=== PATIENT | female | born 1960 | race Caucasian/White ===

== ENCOUNTER → 2016-10-11 | Outpatient (CLI) | payer OTHER ==
[~2016-10-11] MED LIST: AMOX875T PO; ASCA500 PO; CHOL20009 PO; CHOLCAP5 PO; CYAN100020 PO; HYDR-5688 PO; IMT100 PO; LEVO150T9 PO; LIOT5TAB PO; LIOT5TAB9 PO; NAPR-1169 PO; NAPR500T3 PO; OMEG10002 PO; PANT40TA2 PO; RANITAB33 PO; SUMA100T16 PO; SYN150 PO
== END | disposition home or self-care (01) ==
LOC: C.PATHSPEC 16:36
PROVIDERS: ATTEND Dermatology
DX: L57.0 Actinic keratosis (principal)

== ENCOUNTER → 2016-10-18 | Outpatient (CLI) | payer OTHER ==
--- NOTE | 2016-10-18 12:36 | MAMMOGRAPHY REPORT ---
UNILATERAL RIGHT DIGITAL DIAGNOSTIC MAMMOGRAM TOMOSYNTHESIS WITH CAD AND TARGETED BILATERAL ULTRASOU ND: 10/18/2016 CLINICAL HISTORY: Here for six-month follow-up of bilateral breast masses. The patient also reports intermittent left nipple inversion for the last few months. She denies any bloody nipple discharge , palpable lumps, or other current complaints. TECHNIQUE: Breast tomosynthesis in addition to standard 2D mammography was performed. Current study was also evaluated with a Computer Aided Detection (CAD) system. Right CC and MLO 2-D and tomosynt hesis images were obtained. COMPARISON: Comparison is made to exams dated: 05/08/2016 ultrasound, 05/08/2016 mammogram, 11/02/2015 mammogram, 11/02/2015 ultrasound, 04/26/2015 ultrasound, and 04/26/2015 mammogram - [facility]. BREAST COMPOSITION: The tissue of the right breast is heterogeneously dense, which may obscure smal l masses. FINDINGS: There has been no significant interval change compared to prior exams. Again noted are s mall circumscribed benign-appearing masses noted within the right breast, predominantly the right up per outer quadrant. There are no suspicious masses, calcifications, or areas of architectural disto rtion noted in the right breast. Targeted ultrasound was performed of the area of the previously seen masses in the right upper outer quadrant. Again noted are multiple benign appearing cysts and cyst clusters, including 2 adjacent anechoic benign cysts in the right breast at 11:00 measuring 4 and 4 mm. An 8 x 4 x 7 mm anechoic d escribed mass with thin internal septations is seen within the right breast at 9:00, 9 cm from the n ipple, consistent with a benign cyst cluster. Another cyst cluster is seen within the right breast at 10:00, 7 cm from the nipple, measuring 7 x 8 x 5 mm. An adjacent anechoic benign cyst is seen me asuring 5 mm. Another anechoic benign cyst measuring 4 mm is seen within the right breast at 9:30, 9 cm from the nipple. There is a round circumscribed nearly anechoic cyst in the left breast at 11: 00, 4-5 cm from the nipple, measuring 5 x 5 x 4 mm. Adjacent to this is a cyst which measures 3 x 2 mm. No suspicious solid masses are evident. Targeted ultrasound was performed of the left subareolar breast, which shows no suspicious masses or other suspicious sonographic abnormalities. IMPRESSION: ACR BI-RADS CATEGORY 2: BENIGN, TARGETED ULTRASOUND ACR BI-RADS CATEGORY 2: BENIGN Multiple benign cysts and cyst clusters seen bilaterally. No sonographic abnormalities in the left subareolar region to explain intermittent left nipple inversion. There is no mammographic or target ed sonographic evidence of malignancy. Recommend clinical follow-up for intermittent left nipple in version, and recommend routine bilateral screening mammograms which are due May 2017. The patient has been verbally notified of the results. Approximately 10% of breast cancers are not detected with mammography. A negative mammographic repor t should not delay biopsy if a clinically suggestive mass is present. Katrina Sylvester M.D. ah/:10/18/2016 12:05:11 Sensor Operator: Candace Waddell, [facility] letter sent: Normal 1/2 BI-RADS Code: ACR BI-RADS Category 2: Benign Ultrasound BI-RADS: ACR BI-RADS Category 2: Benign
== END | disposition home or self-care (01) ==
LOC: C.MAMM 09:56
PROVIDERS: ATTEND Family Medicine
DX: Z09 Encounter for follow-up examination after completed treatment for conditions other than malignant neoplasm (principal); N63 Unspecified lump in breast; N64.59 Other signs and symptoms in breast; N60.01 Solitary cyst of right breast; N60.02 Solitary cyst of left breast

== ENCOUNTER → 2016-10-30 | Outpatient (CLI) | payer OTHER ==
[2016-10-30 09:59] LABS: CALCIUM 9.4 mg/dl (8.5-10.1)
[2016-10-30 10:00] LABS: ALT/SGPT 72 U/L (12-78); BLOOD UREA NITROGEN 17 mg/dl (7-18); BUN/CREATININE RATIO 21.8 (10-20); CARBON DIOXIDE 27 mmol/L (21-32); CHLORIDE 106 mmol/L (98-107); CHOLESTEROL 237 mg/dl (0-200); CREATININE 0.79 mg/dl (0.60-1.20); GLUCOSE 104 mg/dl (70-99); POTASSIUM 4.1 mmol/L (3.5-5.1); SODIUM 141 mmol/L (136-145); TRIGLYCERIDES 155 mg/dl (0-150); VERY LOW DENSITY LIPOPROT CALC 31 mg/dl
[2016-10-30 10:10] LABS: ALB/GLOB RATIO 1.2 (0.9-2); ALKALINE PHOSPHATASE 56 U/L (45-117); AST/SGOT 32 U/L (15-37); CHOLESTEROL/HDL RATIO 3.8; HDL CHOLESTEROL 63 mg/dl; LDL CHOLESTEROL CALCULATED 143 mg/dl; THYROID STIMULATING HORMONE 0.988 uIu/ml (0.300-4.500)
== END | disposition home or self-care (01) ==
LOC: C.LAB 07:15
PROVIDERS: ATTEND Family Medicine
DX: E03.9 Hypothyroidism, unspecified (principal); E78.5 Hyperlipidemia, unspecified; Z11.59 Encounter for screening for other viral diseases

== ENCOUNTER → 2016-12-20 | Outpatient (CLI) | payer OTHER | END | disposition home or self-care (01) | LOC: C.PATHSPEC 13:18 | PROVIDERS: ATTEND Dermatology | DX: L91.8 Other hypertrophic disorders of the skin (principal) ==

== ENCOUNTER → 2016-12-31 | Outpatient (CLI) | payer OTHER ==
[~2016-12-31] MED LIST changes: -PANT40TA2 PO; +PRT/40 PO
== END | disposition home or self-care (01) ==
LOC: C.PATHSPEC 16:53
PROVIDERS: ATTEND Dermatology
DX: L91.8 Other hypertrophic disorders of the skin (principal)

== ENCOUNTER 2017-01-01 17:14 | Emergency (ER) | payer OTHER ==
[~2017-01-01] VITALS: Ht 160 cm; Wt 109.1 kg
[~2017-01-01 17:14] MED LIST changes: -AMOX875T PO; -CHOLCAP5 PO; -CYAN100020 PO; -HYDR-5688 PO; -IMT100 PO; -LIOT5TAB9 PO; -NAPR500T3 PO; -PRT/40 PO; -SYN150 PO
[2017-01-01 17:21] VITALS: TEMP 36.7; Ht 160 cm; Wt 109.1 kg
[2017-01-01] MEDS ORDERED: SODIUM CHLORIDE 0.9% 1000ML 1,000 ML IV STA (17:37)
[2017-01-01] MEDS ORDERED: NAPR500T3 PO (18:03)
[2017-01-01] MEDS ORDERED: IMT100 PO (18:03)
[2017-01-01] MEDS ORDERED: LIOT5TAB9 PO (18:03)
[2017-01-01] MEDS ORDERED: SYN150 PO (18:03)
[2017-01-01] MEDS ORDERED: PRT/40 PO (18:03)
[2017-01-01] MEDS ORDERED: CHOLCAP5 PO (18:05)
[2017-01-01] MEDS ORDERED: CYAN100020 PO (18:05)
[2017-01-01 18:16] LABS: BASO % 0.5 %; BASO ABS # 0.04 K/uL (0-0.2); COMPLETE YES; EOS % 2.7 %; HEMATOCRIT 41.9 % (37-47); IG% 0.1 %; LYMPH % 26.8 %; LYMPH ABS # 2.18 K/uL (1.2-3.4); MEAN CELL VOLUME 89.5 fL (80-100); MEAN CORPUSCULAR HEMOGLOBIN 30.1 pg (25-34); MEAN CORPUSCULAR HGB CONC 33.7 g/dl (32-36); MEAN PLATELET VOLUME 10.3 fL (7.4-10.4); MONO % 8.6 %; NEUT % 61.3 %; PLATELET COUNT 235 K/uL (130-400); RED BLOOD COUNT 4.68 M/uL (4.2-5.4); WHITE BLOOD COUNT 8.14 K/uL (4.8-10.8)
[2017-01-01] MEDS ORDERED: MoRPHine SULFATE 10 MG/ML CARP/VIAL IV STA (18:20)
[2017-01-01] MEDS ORDERED: MoRPHine SULFATE 2 MG/ML CARP ONE (18:22)
[2017-01-01] MEDS ORDERED: MoRPHine SULFATE 4 MG/ML 1 ML CARP\\VIAL ONE (18:22)
[2017-01-01 18:23] LABS: URINE APPEARANCE CLEAR (CLEAR); URINE BILIRUBIN NEG (NEG); URINE COLOR YELLOW; URINE NITRITE NEG (NEG); URINE PH 5.5 (4.5-7.5); UROBILINOGEN NEG (NEG); ZZUR CULT IF INDIC CLEAN CATCH NO
[2017-01-01 18:26] LABS: MANUAL MICROSCOPIC REQUIRED? NO; REVIEW REQ? NO
[2017-01-01 18:42] LABS: ALB/GLOB RATIO 1.1 (0.9-2); CREATININE 0.86 mg/dl (0.60-1.20); POTASSIUM 3.9 mmol/L (3.5-5.1)
[2017-01-01] MEDS ORDERED: OPTIRAY 320 IV PRN (20:00)
--- NOTE | 2017-01-01 20:17 | DIAGNOSTIC IMAGING REPORT ---
ABDOMEN AND PELVIS CT WITH IV AND ORAL CONTRAST CT DOSE: 1443.11 mGy.cm HISTORY: left lower quadrant pain, hx diverticulosis TECHNIQUE: Multiaxial CT images of the abdomen and pelvis were performed following the use of intravenous and oral contrast. COMPARISON STUDY: Abdomen and pelvis CT 03/24/2016. FINDINGS: The lung bases are clear. Cholecystectomy. Stable hypodense lesions within the liver which likely represent cysts. Hepatic steatosis. The spleen, adrenal glands, and pancreas are unremarkable. No hydronephrosis. Stable 6 mm hypodense lesion within the left kidney. This is too small to characterize. No retroperitoneal lymphadenopathy. The bladder, uterus, and adnexa are unremarkable. Colonic diverticulosis. No evidence for bowel obstruction. Normal appendix. Anterior to and abutting the proximal sigmoid colon within the left lower quadrant there is a bilobed fat-containing structure which measures 3.2 x 2.0 cm in size. There is mild surrounding fat stranding. No definite bowel wall thickening. Therefore, these findings likely represent an epiploic appendagitis. IMPRESSION: Anterior to and abutting the proximal sigmoid colon within the left lower quadrant there is a bilobed fat-containing structure which measures 3.2 x 2.0 cm in size. There is mild surrounding fat stranding. No definite bowel wall thickening. Therefore, these findings are consistent with an epiploic appendagitis. An acute diverticulitis is considered less likely given the lack of an inflamed diverticulum or bowel wall thickening. However, consider repeat scanning if the patient symptoms continue to progress. Electronically signed by: Everett Ferreira M.D. 01/01/2017 8:15 PM Dictated Date/Time: 01/01/2017 8:09 PM
[2017-01-01] MEDS ORDERED: AMOX875T PO (21:08)
[2017-01-01] MEDS ORDERED: HYDR-5688 PO (21:08)
--- NOTE | 2017-01-01 21:10 | EMERGENCY ROOM VISIT NOTE ---
History First contact with patient: 17:25 Chief Complaint: FLANK PAIN Stated Complaint: LEFT UPPER ABDOMINAL PAIN, LOWER STOMACH History of Present Illness The patient is a 56 year old female who presents to the Emergency Room with complaints of left-sided abdominal pain. The patient states that she has a history of left upper and epigastric abdominal pain for the past 2 years. She has been seen by GI for this. She states that over the past 2 days, she has had worsening pain and pain in the left lower abdomen, which is new for her. The pain radiates into the back. She states she has increased pain with bearing down for bowel movements. She rates her discomfort an 8/10. She called Dr. flower's office but states that no one was available to see her, so they sent her here. She states that she was up all night due to the pain. She took an aspirin without relief. She has previously had a cholecystectomy and a removal of the right ovary secondary to a cyst. She has had a colonoscopy in the past and has been told that she has diverticulosis. She takes pantoprazole for her chronic abdominal pain. She denies any chest pain, shortness of breath , vomiting or changes in bowel movements. She denies any urinary symptoms. Review of Systems A complete 10 point review of systems was reviewed with the patient with pertinent positives and negatives as per history of present illness. All else were negative. Past Medical/Surgical History Medical Problems: (1) Gastroesophageal reflux disease (2) Renny's thyroiditis (3) Hypothyroidism (4) Liver cyst (5) Sarcoidosis Surgical Problems: (1) Hx of cholecystectomy (2) S/P removal of right ovary Social History Smoking Status: Never Smoker Current/Historical Medications Scheduled Amoxicillin & Pot Clavulanate (Augmentin 875-125 mg), 1 TAB PO BID Cholecalciferol (Vitamin D3), 5,000 INTER.UNIT PO DAILY Cyanocobalamin (Vitamin B12), 1,000 MCG PO DAILY Levothyroxine Sodium (Synthroid), 150 MG PO QAM Liothyronine Sodium (Liothyronine Sodium), 10 MCG PO QAM Pantoprazole (Pantoprazole Sodium), 40 MG PO QAM Scheduled PRN Hydrocodone/Acetaminophen 5MG/325MG (Wayne 5MG/325MG), 1-2 TABLET PO Q4H PRN for Pain Naproxen (Naproxen), 500 MG PO Q12 PRN for Migraine Sumatriptan Succinate (Imitrex), 100 MG PO UD PRN for Migraine Allergies Coded Allergies: Omeprazole (Verified Adverse Reaction, Unknown, NAUSEA, 04/08/16) Physical Exam Vital Signs Date Time Temp Pulse Resp B/P (MAP) Pulse Ox O2 Delivery O2 Flow Rate FiO2 01/01/17 21:21 76 20 141/81 97 01/01/17 20:31 81 18 149/87 98 Room Air 01/01/17 18:25 103 17 126/81 97 Room Air 01/01/17 18:14 76 01/01/17 17:21 36.7 87 22 151/79 96 Room Air Physical Exam VITALS: Vitals are noted on the nurse's note and reviewed by myself. Vital signs stable. GENERAL: This is a 56-year-old female, in no acute distress, nondiaphoretic, well-developed well-nourished. HEART: Regular rate and rhythm without murmurs gallops or rubs. LUNGS: Clear to auscultation bilaterally without wheezes, rales or rhonchi. ABDOMEN: Positive bowel sounds x 4. Soft, nondistended. Tenderness over the left upper quadrant and left lower quadrant. No guarding or rebound tenderness. NEURO: Patient was alert and oriented to person place and time. Medical Decision & Procedures ER Provider Diagnostic Interpretation: ABDOMEN AND PELVIS CT WITH IV AND ORAL CONTRAST FINDINGS: The lung bases are clear. Cholecystectomy. Stable hypodense lesions within the liver which likely represent cysts. Hepatic steatosis. The spleen, adrenal glands, and pancreas are unremarkable. No hydronephrosis. Stable 6 mm hypodense lesion within the left kidney. This is too small to characterize. No retroperitoneal lymphadenopathy. The bladder, uterus, and adnexa are unremarkable. Colonic diverticulosis. No evidence for bowel obstruction. Normal appendix. Anterior to and abutting the proximal sigmoid colon within the left lower quadrant there is a bilobed fat-containing structure which measures 3.2 x 2.0 cm in size. There is mild surrounding fat stranding. No definite bowel wall thickening. Therefore, these findings likely represent an epiploic appendagitis. IMPRESSION: Anterior to and abutting the proximal sigmoid colon within the left lower quadrant there is a bilobed fat-containing structure which measures 3.2 x 2.0 cm in size. There is mild surrounding fat stranding. No definite bowel wall thickening. Therefore, these findings are consistent with an epiploic appendagitis. An acute diverticulitis is considered less likely given the lack of an inflamed diverticulum or bowel wall thickening. However, consider repeat scanning if the patient symptoms continue to progress. Laboratory Results 01/01/17 18:00 Red Blood Count 4.68, Mean Corpuscular Volume 89.5, Mean Corpuscular Hemoglobin 30.1, Mean Corpuscular Hemoglobin Concent 33.7, Mean Platelet Volume 10.3, Neutrophils (%) (Auto) 61.3, Lymphocytes (%) (Auto) 26.8, Monocytes (%) (Auto) 8.6, Eosinophils (%) (Auto) 2.7, Basophils (%) (Auto) 0.5, Neutrophils # (Auto) 4.99, Lymphocytes # (Auto) 2.18, Monocytes # (Auto) 0.70, Eosinophils # (Auto) 0.22, Basophils # (Auto) 0.04 01/01/17 18:00 Test 01/01/17 17:45 01/01/17 18:00 Urine Color YELLOW Urine Appearance CLEAR (CLEAR) Urine pH 5.5 (4.5-7.5) Urine Specific [place] 1.010 (1.000-1.030) Urine Protein NEG (NEG) Urine Glucose (UA) NEG (NEG) Urine Ketones NEG (NEG) Urine Occult Blood NEG (NEG) Urine Nitrite NEG (NEG) Urine Bilirubin NEG (NEG) Urine Urobilinogen NEG (NEG) Urine Leukocyte Esterase NEG (NEG) Urine Test NEG (NEG) White Blood Count 8.14 K/uL (4.8-10.8) Red Blood Count 4.68 M/uL (4.2-5.4) Hemoglobin 14.1 g/dL (12.0-16.0) Hematocrit 41.9 % (37-47) Mean Corpuscular Volume 89.5 fL (80-100) Mean Corpuscular Hemoglobin 30.1 pg (25-34) Mean Corpuscular Hemoglobin Concent 33.7 g/dl (32-36) Platelet Count 235 K/uL (130-400) Mean Platelet Volume 10.3 fL (7.4-10.4) Neutrophils (%) (Auto) 61.3 % Lymphocytes (%) (Auto) 26.8 % Monocytes (%) (Auto) 8.6 % Eosinophils (%) (Auto) 2.7 % Basophils (%) (Auto) 0.5 % Neutrophils # (Auto) 4.99 K/uL (1.4-6.5) Lymphocytes # (Auto) 2.18 K/uL (1.2-3.4) Monocytes # (Auto) 0.70 K/uL (0.11-0.59) Eosinophils # (Auto) 0.22 K/uL (0-0.5) Basophils # (Auto) 0.04 K/uL (0-0.2) RDW Standard Deviation 39.8 fL (36.4-46.3) RDW Coefficient of Variation 12.4 % (11.5-14.5) Immature Granulocyte % (Auto) 0.1 % Immature Granulocyte # (Auto) 0.01 K/uL (0.00-0.02) Anion Gap 7.0 mmol/L (3-11) Est Creatinine Clear Calc Drug Dose 88.6 ml/min Estimated GFR () 88.8 Estimated GFR (Non- 76.6 BUN/Creatinine Ratio 17.0 (10-20) Calcium Level 10.0 mg/dl (8.5-10.1) Total Bilirubin 0.3 mg/dl (0.2-1) Aspartate Amino Transf (AST/SGOT) 31 U/L (15-37) Alanine Aminotransferase (ALT/SGPT) 72 U/L (12-78) Alkaline Phosphatase 61 U/L (45-117) Total Protein 7.6 gm/dl (6.4-8.2) Albumin 3.9 gm/dl (3.4-5.0) Globulin 3.7 gm/dl (2.5-4.0) Albumin/Globulin Ratio 1.1 (0.9-2) Lipase 178 U/L (73-393) Medications Administered Medications (Trade) Dose Ordered Sig/Mary Lou Route Start Time Stop Time Status Last Admin Dose Admin Sodium Chloride 1,000 ml @ 999 mls/hr Q1H1M STAT IV 01/01/17 17:37 01/01/17 18:37 DC 01/01/17 18:07 999 MLS/HR Morphine Sulfate (MoRPHine SULFATE INJ) 2 mg STK-MED ONCE .ROUTE 01/01/17 18:22 01/01/17 18:23 DC 01/01/17 18:24 2 MG Morphine Sulfate (MoRPHine SULFATE INJ) 4 mg STK-MED ONCE .ROUTE 01/01/17 18:22 01/01/17 18:23 DC 01/01/17 18:25 4 MG Amoxicillin/ Clavulanate Potassium (Augmentin 875MG Home Pack) 1 homepack UD ONCE PO 01/01/17 21:15 01/01/17 21:16 DC 01/01/17 21:17 1 HOMEPACK Acetaminophen/ Hydrocodone Bitart (Wayne 5/325mg Home Pack) 1 homepack UD ONCE PO 01/01/17 21:15 01/01/17 21:16 DC 01/01/17 21:17 1 HOMEPACK ED Course The patient was evaluated as above. Labs were drawn and IV access was obtained. Patient was medicated with 1 L normal saline solution and [address] of the abdomen and pelvis was performed and read by radiology as above. Patient was reevaluated and findings were discussed. Her pain has improved with the morphine. Discharge instructions were reviewed with the patient. The patient verbalized understanding of my assessment and treatment plan and was discharged home in good condition. Medical Decision Differential diagnosis includes diverticulitis, pancreatitis, hepatitis, gastritis, colitis, bowel obstruction, among others. The patient is a 56-year-old female who presents today complaining of left- sided abdominal pain. The patient does have issues with chronic back pain but states that today's pain is different. She does have some tenderness in the left lower quadrant. For this reason, CT scan was ordered. This did show evidence of epiploic appendagitis. The radiologist report a possibility of diverticulitis. For this reason, I do feel it is best to place the patient on antibiotics pending her follow-up with gastroenterology. She will be placed on Augmentin. Labs were unremarkable, with no leukocytosis, anemia or concerning electrolyte abnormalities. Kidney and liver functions were within normal limits. Urinalysis was not suggestive of infection. The patient was given a short course of pain medication and will follow up with gastrology as needed. The patient's case was reviewed with Dr. Hanna, ED attending physician, who agreed with my assessment and treatment plan. Based on the patient's presentation and work up, I feel the patient is stable for outpatient treatment. The patient was educated to return to the emergency department for any worsening of their current condition or new/concerning symptoms. She will follow up with gastroenterology and her PCP. Medication reconciliation: I attest that I have personally reviewed the patient 's current medication list. Blood Pressure Screening: Patient was found to have a slightly elevated blood pressure due to circumstances. I do not believe that the patient requires hypertension monitoring. [place] Drug Monitoring Program Search Results: patient reviewed within database, no issues identified Impression Primary Impression: Epiploic appendagitis Departure Information Dispostion Home / Self-Care Condition GOOD Prescriptions Hydrocodone/Acetaminophen 5MG/325MG (Wayne 5MG/325MG) Tab 1-2 TABLET PO Q4H Y for Pain, #15 TAB For Initial Treatment Prov: Val Dick PA-C 01/01/17 Amoxicillin & Pot Clavulanate (Augmentin 875-125 mg) 1 Tab Tab 1 TAB PO BID for 9 Days, #18 TAB Prov: Val Dick PA-C 01/01/17 Referrals Arlette Troncoso DO (PCP) Patient Instructions My [facility] Additional Instructions You have been treated in the Emergency Department for your Abdominal Pain. Laboratory results and imaging studies have ruled out any emergent causes for your abdominal pain which would warrant admission or surgery. CT scan showed findings most likely consistent with epiploic appendagitis. There is a possibility that you could have mild diverticulitis, which is why you are being placed on antibiotics. You have been prescribed Wayne to be used for pain control. This is a narcotic medication. You cannot drive or consume alcohol while on this medicine. This medicine should only be used for pain that cannot be controlled with over-the- counter pain medicines. For pain control, you can use the following [id number]-[id number] medicines (if >12 yo): - Regular strength (325mg/tab) Tylenol (acetaminophen) 2 tabs every 4-6 hours as needed. Do not exceed 12 tablets in a 24 hour period. Avoid taking more than 4 grams (4000 mg) of Tylenol per day. This includes any other sources of acetaminophen you may take on a regular basis. - Regular strength (200 mg/tab) Advil (ibuprofen) 1-2 tabs every 4-6 hours as needed. Do not exceed a dose of 3200 mg per day. Drink plenty of water and stay well hydrated. As with any trip to the Emergency Department, you should follow-up with your Primary Care Provider from today's visit. You should also call Dr. Flower's office to schedule a follow-up appointment with him. Return to the emergency department if your symptoms persist despite treatment plan outlined above or if the following symptoms occur: Fever, vomiting, worsening pain or any other new/concerning symptoms.
[2017-01-01] MEDS ORDERED: AMOXICIL/CLAVU 875MG HOME PACK PO ONE (21:15)
[2017-01-01] MEDS ORDERED: NORCO 5/325MG HOME PACK PO ONE (21:15)
[2017-01-01 21:21] VITALS: BP 141/81; PULSE 76; O2SAT 97
== END 2017-01-01 21:22 | disposition home or self-care (01) ==
LOC: C.EDB 17:15 → C.EDA 21:22
DX: K63.89 Other specified diseases of intestine (principal); K21.9 Gastro-esophageal reflux disease without esophagitis; E03.9 Hypothyroidism, unspecified; E06.3 Autoimmune thyroiditis; K76.89 Other specified diseases of liver; Z90.49 Acquired absence of other specified parts of digestive tract; Z98.890 Other specified postprocedural states; Z79.899 Other long term (current) drug therapy; Z88.8 Allergy status to other drugs, medicaments and biological substances

== ENCOUNTER → 2017-01-28 | Outpatient (CLI) | payer BC ==
[~2017-01-28] MED LIST changes: -ASCA500 PO; -CHOL20009 PO; +CHOLCAP5 PO; +CYAN100020 PO; +HYDR-5688 PO; +IMT100 PO; -LEVO150T9 PO; -LIOT5TAB PO; +LIOT5TAB9 PO; -NAPR-1169 PO; +NAPR500T3 PO; -OMEG10002 PO; +OPTIRAY 320 IV PRN; +PRT/40 PO; -RANITAB33 PO; -SUMA100T16 PO; +SYN150 PO
--- NOTE | 2017-01-28 10:09 | DIAGNOSTIC IMAGING REPORT ---
ABD/PELVIS IV AND ORAL CONT CT DOSE: 1418.95 mGy.cm HISTORY: Pain. R10.12 Abdominal pain, LUQ (left upper quadrant)R93.5 Abnormal C TECHNIQUE: Multiaxial CT images of the abdomen and pelvis were performed following the use of intravenous and oral contrast. A dose lowering technique was utilized adhering to the principles of ALARA. COMPARISON STUDY: 01/01/2017 FINDINGS: Lung bases remain clear. Fatty infiltration of liver is stable. Hypodensities suggesting small hemangiomas versus cysts are unchanged. Prior cholecystectomy. Pancreas is uniform. Spleen is unremarkable. Kidneys enhance uniformly. The adrenal glands are normal. Bowel pattern is nonobstructive. There is a described fat density anterior to the sigmoid colon has diminished considerably in terms of size currently evident maximum of 1 cm. Scattered colonic diverticuli with no evidence of diverticulitis. Bladder is midline. The uterus is anteflexed. IMPRESSION: Improved exam with the fat density anterior to the sigmoid on the prior study showing near complete resolution. Scattered colonic diverticulosis. Stable fatty infiltration of liver The above report was generated using voice recognition software. It may contain grammatical, syntax or spelling errors. Electronically signed by: Raymond Flores M.D. 01/28/2017 10:08 AM Dictated Date/Time: 01/28/2017 10:02 AM
== END | disposition home or self-care (01) ==
LOC: C.CTS 09:13
PROVIDERS: ATTEND Registered Nurse
DX: R19.7 Diarrhea, unspecified (principal); R10.12 Left upper quadrant pain; R93.5 Abnormal findings on diagnostic imaging of other abdominal regions, including retroperitoneum; K76.0 Fatty (change of) liver, not elsewhere classified; K57.90 Diverticulosis of intestine, part unspecified, without perforation or abscess without bleeding

== ENCOUNTER → 2017-04-08 | Outpatient (CLI) | payer BC ==
[~2017-04-08] MED LIST changes: -OPTIRAY 320 IV PRN
--- NOTE | 2017-04-08 17:14 | DIAGNOSTIC IMAGING REPORT ---
LEFT FOOT 3 VIEWS CLINICAL HISTORY: Left foot pain of several months duration. FINDINGS: 3 views of the left foot are obtained. No prior studies are available for comparison at the time of dictation. The skeletal structures are well mineralized for age. No fracture is seen. Minimal arthritic change is seen at the first metatarsophalangeal joint. The joint spaces are otherwise preserved. There is a large plantar calcaneal enthesophyte. The overlying soft tissues are within normal limits. IMPRESSION: No acute bony abnormality is seen in the left foot. Electronically signed by: Jamarcus Lezama M.D. 04/08/2017 5:13 PM Dictated Date/Time: 04/08/2017 5:12 PM
--- NOTE | 2017-04-08 17:24 | DIAGNOSTIC IMAGING REPORT ---
RIGHT FOOT 3 VIEWS CLINICAL HISTORY: Right foot pain of several months duration. FINDINGS: 3 views of the right foot are obtained. No prior studies are available for comparison at the time of dictation. The skeletal structures are well mineralized for age. No fracture is seen. Mild arthritic change is seen at the first metatarsophalangeal joint. The joint spaces are otherwise preserved. There is a tiny plantar calcaneal enthesophyte. The overlying soft tissues are within normal limits. IMPRESSION: No acute bony abnormality is seen in the right foot. Electronically signed by: Jamarcus Lezama M.D. 04/08/2017 5:23 PM Dictated Date/Time: 04/08/2017 5:13 PM
== END | disposition home or self-care (01) ==
LOC: C.RAD 16:34
PROVIDERS: ATTEND Neuromusculoskeletal Medicine & OMM
DX: M79.671 Pain in right foot (principal); M79.672 Pain in left foot

== ENCOUNTER → 2017-05-27 | Outpatient (CLI) | payer BC ==
[~2017-05-27] MED LIST changes: +PANT40TA2 PO; -PRT/40 PO
--- NOTE | 2017-05-27 14:33 | MAMMOGRAPHY REPORT ---
BILATERAL DIGITAL SCREENING MAMMOGRAM TOMOSYNTHESIS WITH CAD: 05/27/2017 CLINICAL HISTORY: Routine screening. The patient reports intermittent left breast tenderness and lef t nipple inversion. TECHNIQUE: Breast tomosynthesis in addition to standard 2D mammography was performed. Current study was also evaluated with a Computer Aided Detection (CAD) system. COMPARISON: Comparison is made to exams dated: 10/18/2016 ultrasound, 10/18/2016 mammogram, 05/08/2016 ultrasound, 05/08/2016 mammogram, 11/02/2015 mammogram, and 11/02/2015 ultrasound - [facility]. BREAST COMPOSITION: The tissue of both breasts is heterogeneously dense, which may obscure small mas ses. FINDINGS: No suspicious masses, calcifications, or areas of architectural distortion are noted in ei ther breast. There has been no significant interval change compared to prior exams. Scattered small round/oval benign-appearing masses are again noted bilaterally, with multiple cysts seen on prior ult rasound exams. Scattered bilateral benign-appearing calcifications are also not significantly change d. IMPRESSION: ACR BI-RADS CATEGORY 2: BENIGN There is no mammographic evidence of malignancy. A 1 year screening mammogram is recommended. Also r ecommend clinical follow-up for intermittent left breast tenderness and left nipple inversion. The p atient will receive written notification of the results. Approximately 10% of breast cancers are not detected with mammography. A negative mammographic report should not delay biopsy if a clinically suggestive mass is present. Katrina Sylvester M.D. /:05/27/2017 13:31:50 Frozen Pie Maker: Candace Waddell, [facility] letter sent: Normal 1/2 BI-RADS Code: ACR BI-RADS Category 2: Benign
== END | disposition home or self-care (01) ==
LOC: C.MAMM 10:28
PROVIDERS: ATTEND Obstetrics & Gynecology
DX: Z12.31 Encounter for screening mammogram for malignant neoplasm of breast (principal); N64.4 Mastodynia; N64.59 Other signs and symptoms in breast

== ENCOUNTER → 2017-07-02 | Outpatient (CLI) | payer BC ==
[~2017-07-02] MED LIST changes: +DOCU-94 PO; +NAPR-1231 PO; -NAPR500T3 PO; +ONDA4TAB10 SL; +RANI150T85 PO
== END | disposition home or self-care (01) ==
LOC: C.PATHSPEC 14:02
PROVIDERS: ATTEND Obstetrics & Gynecology
DX: R93.8 Abnormal findings on diagnostic imaging of other specified body structures (principal)

== ENCOUNTER → 2017-07-02 | Outpatient (CLI) | payer BC | END | disposition home or self-care (01) | LOC: C.LABSPEC 13:22 | PROVIDERS: ATTEND Obstetrics & Gynecology | DX: R35.0 Frequency of micturition (principal) ==

== ENCOUNTER → 2017-09-11 | Outpatient (CLI) | payer BC ==
[~2017-09-11] MED LIST changes: -DOCU-94 PO; -HYDR-5688 PO; -ONDA4TAB10 SL; -RANI150T85 PO
--- NOTE | 2017-09-11 17:59 | DIAGNOSTIC IMAGING REPORT ---
KUB HISTORY: Acute left upper quadrant abdominal pain with constipation R14.0 [id number] Abdominal pain, LUQ (left upper quadrant)RA COMPARISON: CT abdomen and pelvis 01/28/2017 FINDINGS: The bowel gas pattern is non-obstructive. Moderate stool volume of the cecum and ascending colon. There is no organomegaly. No renal or ureteral calculi identified. Renal shadows are partially obscured by bowel gas. Cholecystectomy clips noted. Probable phleboliths of the pelvis. Mild dextroscoliosis of the mid lumbar spine. No pneumoperitoneum or pneumatosis. No fracture. IMPRESSION: 1. Nonobstructive bowel gas pattern. 2. No renal or ureteral stones. Electronically signed by: Timothy Goncalves M.D. 09/11/2017 5:57 PM Dictated Date/Time: 09/11/2017 5:56 PM
== END | disposition home or self-care (01) ==
LOC: C.RAD 17:12
PROVIDERS: ATTEND Registered Nurse
DX: R14.0 Abdominal distension (gaseous) (principal); R10.12 Left upper quadrant pain

== ENCOUNTER → 2017-10-07 | Outpatient (CLI) | payer OTHER, BC | END | disposition home or self-care (01) | LOC: C.CPL 08:08 | PROVIDERS: ATTEND Orthopaedic Surgery | DX: M25.562 Pain in left knee (principal) ==

== ENCOUNTER → 2017-10-27 | Outpatient (CLI) | payer BC ==
--- NOTE | 2017-10-27 09:43 | DIAGNOSTIC IMAGING REPORT ---
THYROID ULTRASOUND CLINICAL HISTORY: Throat pain. Dysphagia. COMPARISON STUDY: Thyroid ultrasound June 20, 2014. TECHNIQUE: Sonography of the thyroid gland was performed. FINDINGS: As before, the thyroid gland is markedly heterogeneous. The right lobe measures 5.7 x 2.3 x 2.1 cm and the left lobe measures 5.7 x 2.8 x 2.2 cm. The gland has mildly decreased in size since exam of June 20, 2014. No discrete thyroid nodules are identified. The isthmus measures 0.4 cm in thickness. IMPRESSION: 1. Heterogeneous, enlarged thyroid gland which has slightly decreased in size since exam of June 20, 2014. 2. No discrete thyroid nodules identified. Electronically signed by: Felipe Mclean M.D. 10/27/2017 9:41 AM Dictated Date/Time: 10/27/2017 9:40 AM
== END | disposition home or self-care (01) ==
LOC: C.ULTR 09:05
PROVIDERS: ATTEND Neuromusculoskeletal Medicine & OMM
DX: E04.9 Nontoxic goiter, unspecified (principal)

== ENCOUNTER → 2017-11-26 | Outpatient (CLI) | payer BC ==
[2017-11-26 15:27] LABS: BASO % 0.3 %; BASO ABS # 0.02 K/uL (0-0.2); EOS % 2.7 %; EOS ABS # 0.17 K/uL (0-0.5); HEMATOCRIT 42.6 % (37-47); HEMOGLOBIN 14.3 g/dL (12.0-16.0); IG# 0.01 K/uL (0.00-0.02); LYMPH % 29.5 %; LYMPH ABS # 1.87 K/uL (1.2-3.4); MEAN CELL VOLUME 90.3 fL (80-100); MEAN CORPUSCULAR HEMOGLOBIN 30.3 pg (25-34); MEAN CORPUSCULAR HGB CONC 33.6 g/dl (32-36); MEAN PLATELET VOLUME 10.7 fL (7.4-10.4); MONO % 7.1 %; MONO ABS # 0.45 K/uL (0.11-0.59); NEUT % 60.2 %; NEUT ABS # 3.82 K/uL (1.4-6.5); PLATELET COUNT 225 K/uL (130-400); RED CELL DISTRIBUTION WIDTH CV 12.6 % (11.5-14.5); RED CELL DISTRIBUTION WIDTH SD 41.6 fL (36.4-46.3); WHITE BLOOD COUNT 6.34 K/uL (4.8-10.8)
[2017-11-26 15:54] LABS: ALBUMIN 3.8 gm/dl (3.4-5.0); ALKALINE PHOSPHATASE 68 U/L (45-117); ALT/SGPT 45 U/L (12-78); AST/SGOT 24 U/L (15-37); BLOOD UREA NITROGEN 12 mg/dl (7-18); CALCIUM 9.3 mg/dl (8.5-10.1); CARBON DIOXIDE 29 mmol/L (21-32); CREATININE 0.71 mg/dl (0.60-1.20); GLUCOSE 101 mg/dl (70-99); LIPASE 169 U/L (73-393); POTASSIUM 3.9 mmol/L (3.5-5.1); SODIUM 139 mmol/L (136-145); TOTAL PROTEIN 7.6 gm/dl (6.4-8.2)
== END | disposition home or self-care (01) ==
LOC: C.LAB 14:15
PROVIDERS: ATTEND Registered Nurse
DX: R14.0 Abdominal distension (gaseous) (principal); R19.5 Other fecal abnormalities

== ENCOUNTER 2017-11-30 07:04 | Emergency (ER) | payer BC ==
[~2017-11-30] VITALS: Ht 157.5 cm; Wt 103.5 kg
[2017-11-30 07:07] VITALS: TEMP 36.7; Ht 157.5 cm; Wt 103.5 kg
--- NOTE | 2017-11-30 07:26 | EMERGENCY ROOM VISIT NOTE ---
History Report prepared by Rhona: Sharon Jorge Under the Supervision of: Dr. Shun Prasad M.D. 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 Pain is located diffusely. She describes this feeling as a pressure. She has some nausea but denies any vomiting, hematochezia, melena. Patient denies any fevers, dysuria, hematuria. 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 A total of ten systems were reviewed and were otherwise negative. Past Medical & Surgical Medical Problems: (1) Gastroesophageal reflux disease (2) Renny's thyroiditis (3) Hypothyroidism (4) Liver cyst (5) Sarcoidosis Surgical Problems: (1) Hx of cholecystectomy (2) S/P removal of right ovary Family History Cancer FHx: diabetes mellitus Gallbladder disease Heart disease High blood pressure Lung disease Social History Smoking Status: Never Smoker Smokeless Tobacco Use: No Alcohol Use: none Housing Status: lives alone Occupation Status: employed Current/Historical Medications Scheduled Cholecalciferol (Vitamin D3), 5,000 INTER.UNIT PO DAILY Docusate Sodium (Colace), 1 CAP PO BID Levothyroxine Sodium (Synthroid), 150 MCG PO QAM Liothyronine Sodium (Liothyronine Sodium), 10 MCG PO QAM Ondasetron Odt (Zofran Odt), 4 MG SL TID Pantoprazole (Pantoprazole Sodium), 40 MG PO QAM Ranitidine (Zantac), 150 MG PO BID Scheduled PRN Naproxen (Naproxen), 500 MG PO Q12 PRN for Migraine Sumatriptan Succinate (Imitrex), 100 MG PO UD PRN for Migraine Allergies Coded Allergies: Omeprazole (Verified Adverse Reaction, Unknown, NAUSEA, 11/30/17) Physical Exam Vital Signs Date Time Temp Pulse Resp B/P (MAP) Pulse Ox O2 Delivery O2 Flow Rate FiO2 11/30/17 08:58 73 18 140/77 99 11/30/17 07:07 36.7 70 19 150/96 97 Room Air Physical Exam Physical Exam GENERAL: She is oriented to person, place, and time. She appears well- developed and well-nourished. She does not appear distressed. ____ HENT: Exam performed. Head: Normocephalic and atraumatic. Right Ear: External ear normal. No mastoid tenderness. Left Ear: External ear normal. No mastoid tenderness. Mouth/Throat: The oropharynx is clear and moist. No trismus in the jaw. No dental abscesses or uvula swelling. No oropharyngeal exudate or tonsillar abscesses. ____ EYES: Conjunctivae and EOM are normal. Pupils are equal, round, and reactive to light. Right eye exhibits no discharge. Left eye exhibits no discharge. No scleral icterus. ____ NECK: Normal range of motion. Neck supple. No JVD present. No spinous process tenderness present. No carotid bruit present. No rigidity. No tracheal deviation and normal range of motion present. No Brudzinski's sign and no Kernig 's sign noted. ____ CV: Normal rate, regular rhythm, normal heart sounds and intact distal pulses. There is no peripheral edema. Palpable radial pulses bue. ____ PULM/CHEST: Effort normal and breath sounds normal. No respiratory distress. No stridor. She has no wheezes. She has no rales. Chest Wall: She exhibits no tenderness. ____ ABD: The abdomen is soft. Bowel sounds are normal. She has no distension. No mass is present. There is no tenderness. There is no rebound, no guarding, no Gamez's sign and no tenderness at McBurney's point. Rovsig negative MUSC/SKEL: Normal range of motion. There is no peripheral edema, tenderness or deformity. LYMPH: No cervical adenopathy. ____ NEURO: She is alert and oriented to person, place, and time. She has normal strength. No cranial nerve deficit or sensory deficit. Coordination and gait normal. GCS eye subscore is 4. GCS verbal subscore is 5. GCS motor subscore is 6. Cerebellar tests wnl. ____ SKIN: Skin is warm and dry. She is not diaphoretic. ____ PSYCH: She has a normal mood and affect. Her behavior is normal. Judgment and thought content normal. ____ Medical Decision & Procedures ER Provider Diagnostic Interpretation: Radiology results as stated below per my review and radiologist interpretation: PA CHEST RADIOGRAPH AND UPRIGHT AND SUPINE AP RADIOGRAPHS OF THE ABDOMEN CLINICAL HISTORY: Abdominal pain. COMPARISON STUDY: Chest CT November 20, 2015, CT of the abdomen and pelvis January 28, 2017 and KUB September 11, 2017. FINDINGS: Lung volumes are normal. No pneumothorax or pleural effusion is present. Lungs are clear. Pulmonary vascularity is normal. Cardiomediastinal silhouette is unremarkable. There is no free air. There is mild S-shaped scoliosis of the thoracolumbar spine. There are cholecystectomy clips. The bowel gas pattern is normal. Pelvic calcifications reflect phleboliths. IMPRESSION: 1. No free air or evidence of bowel obstruction. 2. No acute cardiopulmonary findings. Electronically signed by: Felipe Mclean M.D. 11/30/2017 8:34 AM Laboratory Results 11/30/17 07:50 Red Blood Count 4.58, Mean Corpuscular Volume 89.1, Mean Corpuscular Hemoglobin 30.6, Mean Corpuscular Hemoglobin Concent 34.3, Mean Platelet Volume 10.0, Neutrophils (%) (Auto) 48.4, Lymphocytes (%) (Auto) 37.8, Monocytes (%) (Auto) 9.1, Eosinophils (%) (Auto) 4.1, Basophils (%) (Auto) 0.4, Neutrophils # (Auto) 2.50, Lymphocytes # (Auto) 1.95, Monocytes # (Auto) 0.47, Eosinophils # (Auto) 0.21, Basophils # (Auto) 0.02 11/30/17 07:50 Test 11/30/17 07:50 11/30/17 09:00 White Blood Count 5.16 K/uL (4.8-10.8) Red Blood Count 4.58 M/uL (4.2-5.4) Hemoglobin 14.0 g/dL (12.0-16.0) Hematocrit 40.8 % (37-47) Mean Corpuscular Volume 89.1 fL (80-100) Mean Corpuscular Hemoglobin 30.6 pg (25-34) Mean Corpuscular Hemoglobin Concent 34.3 g/dl (32-36) Platelet Count 208 K/uL (130-400) Mean Platelet Volume 10.0 fL (7.4-10.4) Neutrophils (%) (Auto) 48.4 % Lymphocytes (%) (Auto) 37.8 % Monocytes (%) (Auto) 9.1 % Eosinophils (%) (Auto) 4.1 % Basophils (%) (Auto) 0.4 % Neutrophils # (Auto) 2.50 K/uL (1.4-6.5) Lymphocytes # (Auto) 1.95 K/uL (1.2-3.4) Monocytes # (Auto) 0.47 K/uL (0.11-0.59) Eosinophils # (Auto) 0.21 K/uL (0-0.5) Basophils # (Auto) 0.02 K/uL (0-0.2) RDW Standard Deviation 40.7 fL (36.4-46.3) RDW Coefficient of Variation 12.7 % (11.5-14.5) Immature Granulocyte % (Auto) 0.2 % Immature Granulocyte # (Auto) 0.01 K/uL (0.00-0.02) Anion Gap 7.0 mmol/L (3-11) Est Creatinine Clear Calc Drug Dose 101.0 ml/min Estimated GFR () 111.1 Estimated GFR (Non- 95.9 BUN/Creatinine Ratio 22.5 (10-20) Calcium Level 9.1 mg/dl (8.5-10.1) Total Bilirubin 0.4 mg/dl (0.2-1) Direct Bilirubin < 0.1 mg/dl (0-0.2) Aspartate Amino Transf (AST/SGOT) 20 U/L (15-37) Alanine Aminotransferase (ALT/SGPT) 42 U/L (12-78) Alkaline Phosphatase 62 U/L (45-117) Total Protein 7.1 gm/dl (6.4-8.2) Albumin 3.9 gm/dl (3.4-5.0) Lipase 184 U/L (73-393) Urine Color YELLOW Urine Appearance CLEAR (CLEAR) Urine pH 5.0 (4.5-7.5) Urine Specific [place] 1.015 (1.000-1.030) Urine Protein NEG (NEG) Urine Glucose (UA) NEG (NEG) Urine Ketones NEG (NEG) Urine Occult Blood NEG (NEG) Urine Nitrite NEG (NEG) Urine Bilirubin NEG (NEG) Urine Urobilinogen NEG (NEG) Urine Leukocyte Esterase NEG (NEG) Laboratory results reviewed by nc ED Course 0718: The patient was evaluated in room B3. A complete history and physical exam was performed.The patient has a history of Renny's, thyroiditis, GERD, sarcoidosis, and a liver cyst. She is followed by DAMION Rivas. She is on Protonix. She had labs drawn on November 26 which were all within normal limits. CBC and CMP including a lipase were all within normal limits. Urine was within normal limits. 0850: Vitals signs are stable. Labs and imaging within normal limits. Repeat abdominal exam within normal limits no pain on palpation. She will follow up with her GI doctor. DISCHARGE - Plan of care discussed with patient and questions answered. The patient was given both verbal and printed discharge instructions. The patient verbalized understanding and ability to comply. The patient is to seek outpatient follow up as noted in the discharge instructions. The patient verbalized understanding and ability to comply. The patient is discharged in stable condition. The patient was instructed to return for worsening symptoms. Medical Decision 0718: The patient was evaluated in room B3. A complete history and physical exam was performed.The patient has a history of Renny's, thyroiditis, GERD, sarcoidosis, and a liver cyst. She is followed by DAMION Rivas. She is on Protonix. She had labs drawn on November 26 which were all within normal limits. CBC and CMP including a lipase were all within normal limits. Urine was within normal limits. 0850: Vitals signs are stable. Labs and imaging within normal limits. Repeat abdominal exam within normal limits no pain on palpation. She will follow up with her GI doctor. DISCHARGE - Plan of care discussed with patient and questions answered. The patient was given both verbal and printed discharge instructions. The patient verbalized understanding and ability to comply. The patient is to seek outpatient follow up as noted in the discharge instructions. The patient verbalized understanding and ability to comply. The patient is discharged in stable condition. The patient was instructed to return for worsening symptoms. Medication Reconcilliation Current Medication List: was personally reviewed by nc Blood Pressure Screening Patient's blood pressure: Elevated blood pressure Blood pressure disposition: Elevated BP felt to be situational Impression Primary Impression: Abdominal pain Scribe Attestation The scribe's documentation has been prepared under my direction and personally reviewed by me in its entirety. I confirm that the note above accurately reflects all work, treatment, procedures, and medical decision making performed by me. The chart was completed utilizing [employer] Speech voice recognition software. Grammatical errors, random word insertions, pronoun errors, and incomplete sentences are an occasional consequence of this system due to software limitations, ambient noise, and hardware issues. Any formal questions or concerns about the content, text, or information contained within the body of this dictation should be directly addressed to the physician for clarification. Departure Information Dispostion Home / Self-Care Prescriptions Ondasetron Odt (ZOFRAN ODT) 4 Mg Tab 4 MG SL TID for Nausea, #14 TAB Prov: Shun Prasad M.D. 11/30/17 Referrals Shamika Kramer MD (PCP) Forms Call Back Authorization, HOME CARE DOCUMENTATION FORM, IMPORTANT VISIT INFORMATION Patient Instructions My [facility] Problem Qualifiers Primary Impression: Abdominal pain Abdominal location: unspecified location Qualified Codes: R10.9 - Unspecified abdominal pain
[2017-11-30 08:07] LABS: BASO % 0.4 %; BASO ABS # 0.02 K/uL (0-0.2); EOS % 4.1 %; EOS ABS # 0.21 K/uL (0-0.5); HEMATOCRIT 40.8 % (37-47); IG# 0.01 K/uL (0.00-0.02); LYMPH % 37.8 %; LYMPH ABS # 1.95 K/uL (1.2-3.4); MEAN CELL VOLUME 89.1 fL (80-100); MEAN CORPUSCULAR HEMOGLOBIN 30.6 pg (25-34); MEAN CORPUSCULAR HGB CONC 34.3 g/dl (32-36); MONO % 9.1 %; MONO ABS # 0.47 K/uL (0.11-0.59); NEUT % 48.4 %; PLATELET COUNT 208 K/uL (130-400); RED CELL DISTRIBUTION WIDTH CV 12.7 % (11.5-14.5); RED CELL DISTRIBUTION WIDTH SD 40.7 fL (36.4-46.3); WHITE BLOOD COUNT 5.16 K/uL (4.8-10.8)
[2017-11-30 08:26] LABS: ALBUMIN 3.9 gm/dl (3.4-5.0); ALKALINE PHOSPHATASE 62 U/L (45-117); ALT/SGPT 42 U/L (12-78); AST/SGOT 20 U/L (15-37); BLOOD UREA NITROGEN 16 mg/dl (7-18); CALCIUM 9.1 mg/dl (8.5-10.1); CARBON DIOXIDE 28 mmol/L (21-32); CREATININE 0.71 mg/dl (0.60-1.20); GLUCOSE 91 mg/dl (70-99); LIPASE 184 U/L (73-393); POTASSIUM 4.2 mmol/L (3.5-5.1); SODIUM 139 mmol/L (136-145); TOTAL PROTEIN 7.1 gm/dl (6.4-8.2)
[2017-11-30] MEDS ORDERED: RANI150T85 PO (08:29)
[2017-11-30] MEDS ORDERED: DOCU-94 PO (08:29)
--- NOTE | 2017-11-30 08:35 | DIAGNOSTIC IMAGING REPORT ---
PA CHEST RADIOGRAPH AND UPRIGHT AND SUPINE AP RADIOGRAPHS OF THE ABDOMEN CLINICAL HISTORY: Abdominal pain. COMPARISON STUDY: Chest CT November 20, 2015, CT of the abdomen and pelvis January 28, 2017 and KUB September 11, 2017. FINDINGS: Lung volumes are normal. No pneumothorax or pleural effusion is present. Lungs are clear. Pulmonary vascularity is normal. Cardiomediastinal silhouette is unremarkable. There is no free air. There is mild S-shaped scoliosis of the thoracolumbar spine. There are cholecystectomy clips. The bowel gas pattern is normal. Pelvic calcifications reflect phleboliths. IMPRESSION: 1. No free air or evidence of bowel obstruction. 2. No acute cardiopulmonary findings. Electronically signed by: Felipe Mclean M.D. 11/30/2017 8:34 AM Dictated Date/Time: 11/30/2017 8:32 AM
[2017-11-30] MEDS ORDERED: ONDA4TAB10 SL (08:54)
[2017-11-30 08:58] VITALS: BP 140/77; PULSE 73; O2SAT 99
== END 2017-11-30 08:58 | disposition home or self-care (01) ==
LOC: C.EDB 07:05
DX: R10.30 Lower abdominal pain, unspecified (principal); R03.0 Elevated blood-pressure reading, without diagnosis of hypertension; R11.0 Nausea; K21.9 Gastro-esophageal reflux disease without esophagitis; E06.3 Autoimmune thyroiditis; Z90.49 Acquired absence of other specified parts of digestive tract; Z83.79 Family history of other diseases of the digestive system; Z79.899 Other long term (current) drug therapy; Z88.8 Allergy status to other drugs, medicaments and biological substances

== ENCOUNTER 2022-02-26 07:12 | Observation (INO) ==
--- NOTE | 2022-02-26 07:37 | Emergency Department Note ---
History of Present Illness General Chief complaint: Neuro Symptoms/Deficit Stated complaint: WHOLE BODY NUMBNESS-WORSE NECK/LW BACK Time Seen by Provider: 02/26/22 07:19 History of Present Illness Maximum Pain Intensity: 5 This is a 61-year-old female that presents to the emergency department via private vehicle with complaints of "whole body numbness". The patient notes that for the past several weeks she has been experiencing numbness in her upper and lower extremities bilaterally. This has progressively worsened over the past few weeks. She also notes associated facial numbness that is also bilateral. She notes that this is often worse when she awakes after laying on her side. The patient denies any trauma or injury. No fevers or chills. No chest pain or shortness of breath at the present time. She does note ongoing left upper quadrant abdominal discomfort. She was initially on Linzess but has subsequently stopped this medication. She does note recent work-up/testing has been overall reassuring but she notes ongoing symptoms. She notes significant trouble sleeping. She states that this past evening she finally fell asleep around 2:30 AM. She is concerned that there is something medically wrong with her that could be life-threatening. Patient denies any speech trouble or weakness. Home Medications Medication Instructions Recorded Confirmed Type cholecalciferol (vitamin D3) 125 5,000 unit PO QAM 03/15/18 02/26/22 History mcg (5,000 unit) tablet (Vitamin D3) fluticasone propionate 50 1 spray intranasal DAILY PRN Nasal 07/07/19 02/26/22 History mcg/actuation nasal Congestion spray,suspension fexofenadine 180 mg tablet 180 mg PO QAM PRN Allergy Symptoms 04/06/20 02/26/22 History albuterol sulfate 90 mcg/actuation 1 puff inhalation Q4H PRN 12/23/20 02/26/22 History aerosol inhaler (Ventolin HFA) shortness of breath or wheezing naproxen 500 mg tablet 500 mg PO Q12H PRN Migraine 01/04/21 02/26/22 Rx Headache #60 tabs dicyclomine 20 mg tablet 20 mg PO Q6 PRN abdominal pain #30 03/07/21 02/26/22 Rx tabs cyanocobalamin (vitamin B-12) 100 0 mcg PO DAILY 02/09/22 08/23/22 History mcg tablet (Vitamin B-12) liothyronine 5 mcg tablet 10 mcg PO QAM #180 tabs 10/15/21 02/26/22 Rx chlorthalidone 25 mg tablet 25 mg PO QAM #90 tabs 10/16/21 02/26/22 Rx pantoprazole 40 mg tablet,delayed 40 mg PO QAM #90 tabs 10/18/21 02/26/22 Rx release sumatriptan succinate 100 mg tablet 100 mg PO Q2H PRN migraine 11/22/21 02/26/22 Rx headache #9 tabs buspirone 5 mg tablet 5 mg PO BID PRN anxiety #60 tabs 12/12/21 02/26/22 Rx etodolac 200 mg capsule 200 mg PO Q12H PRN pain #14 caps 02/12/22 02/26/22 Rx levothyroxine 150 mcg tablet 150 mcg PO DAILY 02/12/22 02/26/22 History (Synthroid) Allergies Allergy/AdvReac Type Severity Reaction Status Date / Time omeprazole AdvReac Mild NAUSEA Verified 02/19/22 10:30 Past Med/Surg History Medical History Abdominal bloating Benign familial tremor BILATERAL HANDS COVID-19 Dysphagia Gastroesophageal reflux disease Renny's thyroiditis Hx of gastric ulcer Hypertension Hypothyroidism Migraine Osteoarthritis Sarcoidosis "FOUND IN GALLBLADDER" ALSO IN LUNGS (NO CURRENT PROBLEMS) Sleep apnea CPAP Surgical History History of arthroscopy of knee LEFT History of bronchoscopy History of colonoscopy History of esophagogastroduodenoscopy (EGD) History of right salpingo-oophorectomy Hx of cholecystectomy [place] teeth removed Family History Mother Diabetes Cardiac disorder Malignant neoplasm of gastrointestinal tract Hypertension Stroke Colon cancer Brother Pulmonary embolism Acute venous embolism and thrombosis of deep vessels of distal lower extremity Hypertension Father Prostate cancer Non-Hodgkin lymphoma Uncle Parkinsons disease Sister Breast cancer Other Gallbladder disease Heart disease Kidney stones Denies family history of Ovarian cancer Social History Smoking Status: Never smoker Second Hand Exposure: No; Hx Alcohol Use: No Hx Substance Use: No Preferred Language: Tristanian Communication Ability: Effective Visual Impairment: No Limitations Hearing Ability: Normal Furniture Painter Required: No Beliefs That Will Affect Care: None marital status: Single Current Living Situation: Alone current occupational status: employed current occupation: [employer] Other Information That Helps Us Care for You: No Feels Safe at Home: Yes Safety Concerns: Feels Safe At This Time Childhood Exposure to Second-Hand Smoke: No Diet Comment: regular caffeine: Yes during the past year weight has: remained stable Dental Care, Regularly: Yes Physical Activity Frequency: Daily Seatbelt Use: always Sunscreen Use: Yes Assistive Devices: None Review of Systems A total of 10 systems reviewed and were otherwise negative Physical Exam Vital Signs Vital Signs - 24 hr 02/26/22 07:15 02/26/22 07:34 02/26/22 07:12 Temperature 36.7 C Temperature Source Temporal Artery Scan Pulse Rate 87 Respiratory Rate 18 16 16 Respiratory Effort / Characteristics Non-Labored Non-Labored Respiratory Depth Normal Normal Respiratory Pattern Regular Blood Pressure 145/78 H Blood Pressure Mean 100 Blood Pressure Position Sitting Pulse Oximetry 98 Oxygen Delivery Method Room Air Room Air Sepsis Recent Fever Within 48 Hours No Sepsis New/Unexplained Change in Mental Status No Sepsis Action Taken by Nursing No Action Required VITAL SIGNS - Vital signs and nursing notes were reviewed. Stable and afebrile. GENERAL -61-year-old female appearing her stated age who is in no acute distress. Communicates well with provider and answers questions appropriately. SKIN - Without rashes. No meningeal or petechial rash. HEAD - NC/AT. EYES - PERRL with EOMI bilaterally. Sclera anicteric. EARS - No deformities of external structures noted on gross examination bilaterally. NOSE - Midline and without cyanosis. No epistaxis or purulent drainage noted. MOUTH/OROPHARYNX - Without perioral cyanosis. Buccal mucosa pink and moist and without leukoplakia. Tongue midline with equal elevation of palate bilaterally. No tonsillar hypertrophy, erythema, or exudates noted. Good dentition noted. NECK - Neck with FROM. No nuchal rigidity. LUNGS - Chest wall symmetric without accessory muscle use, intercostals retractions, or central cyanosis. Normal vesicular breath sounds CTA B/L. No wheezes, rales, or rhonchi appreciated. CARDIAC - RRR with S1/S2. No murmur, rubs, or gallops appreciated. ABDOMEN - Abdominal contour normal without pulsations or visible masses. BS normoactive all four quadrants. No tenderness, palpable masses, hepatos plenomegaly, or ascites noted. EXTREMITIES - No clubbing or peripheral cyanosis. +5/5 strength noted in UE/LE bilaterally. NEUROLOGIC - Cranial nerves II through XII grossly intact. Sensory intact to light touch throughout. PSYCH - A&Ox3 and cooperates fully with examiner. Pt is very pleasant and in teracts well with examiner. Course Administered Medications Acetaminophen (Acetaminophen 325 Mg Tab) 650 mg PO Q4H PRN PRN Reason: Pain or Fever Stop: 03/28/22 11:55 Last Admin: 02/26/22 14:42 Dose: 650 mg Documented By: KETURAH Discontinued Medications Gadobutrol (Gadobutrol 65ml Vial) 9.5 ml IV ONCE ONE Stop: 02/26/22 14:16 Last Admin: 02/26/22 14:08 Dose: 9.5 ml Documented By: BEAN Potassium Chloride (Potassium Chloride Crtab 20 Meq Tabcr) 40 meq PO NOW STA Stop: 02/26/22 14:35 Last Admin: 02/26/22 14:42 Dose: 40 meq Documented By: KETURAH Medical Decision Making Laboratory Data Result diagrams: 02/26/22 07:50 02/26/22 07:50 Lab Results 02/26/22 02/26/22 02/26/22 Range/Units 07:50 07:50 07:50 WBC 5.61 (4.8-10.8) K/ul RBC 4.97 (3.93-5.22) M/uL Hgb 15.0 (12.0-16.0) g/dl Hct 43.5 (34.1-44.9) % MCV 87.5 (80.0-100.0) fL MCH 30.2 (25.0-34.0) pg MCHC 34.5 (32.0-36.0) g/dL RDW Std Deviation 39.1 (36.4-46.3) fL RDW Coeff of Cristal 12.4 (11.5-14.5) % Plt Count 220 (130-400) K/uL MPV 10.6 (9.4-12.3) fL Immature Gran % (Auto) 0.4 % Neut % (Auto) 60.6 % Lymph % (Auto) 25.1 % [place] % (Auto) 10.5 % Eos % (Auto) 2.9 % Baso % (Auto) 0.5 % Neut # (Auto) 3.40 (1.4-6.5) K/uL Lymph # (Auto) 1.41 (1.2-3.4) K/uL [place] # (Auto) 0.59 (0.24-0.82) K/uL Eos # (Auto) 0.16 (0-0.50) K/uL Baso # (Auto) 0.03 (0-0.2) K/uL Immature Gran # (Auto) 0.02 (0.00-0.02) K/uL Sodium 137 (136-145) mmol/L Potassium 3.1 L (3.5-5.1) mmol/L Chloride 97 L (98-107) mmol/L Carbon Dioxide 31 (21-32) mmol/L Anion Gap 9 (3-11) BUN 14 (6-23) mg/dl Creatinine 0.69 (0.6-1.2) mg/dl Est Cr Clr Drug Dosing 94.9 ml/min Est GFR ( Amer) 110.4 ml/min Est GFR (Non-Af Amer) 95.3 ml/min BUN/Creatinine Ratio 20.3 H (10-20) Glucose 107 H (70-99(Fasting)) mg/dl Calcium 10.1 (8.5-10.1) mg/dl Magnesium 1.7 (1.7-2.4) mg/dl Total Bilirubin 0.6 (0.2-1.0) mg/dl AST 19 (13-39) U/L ALT 31 (7-52) U/L Alkaline Phosphatase 43 (34-104) U/L Troponin I High Sens 3.0 (0-14) pg/ml Total Protein 7.3 (6.0-8.3) gm/dl Albumin 4.5 (3.4-5.0) gm/dl Globulin 2.8 (2.5-4.0) gm/dl Albumin/Globulin Ratio 1.6 (0.9-2) Procalcitonin < 0.05 (0-0.5) ng/ml TSH (0.300-4.500) uIu/ml Free T4 (0.61-1.60) ng/dl Urine Color Urine Appearance (Clear) Urine pH (4.5-7.5) Ur Specific [place] (1.000-1.030) Urine Protein (Negative) Urine Glucose (UA) (Negative) Urine Ketones (Negative) Urine Blood (Negative) Urine Nitrite (Negative) Urine Bilirubin (Negative) Urine Urobilinogen (Negative) Ur Leukocyte Esterase (Negative) Anaplasma Smear See Comment Babesia Smear See Comment SARS-CoV-2, RNA, NAAT (NEGATIVE) 02/26/22 02/26/22 02/26/22 Range/Units 07:50 07:57 08:42 WBC (4.8-10.8) K/ul RBC (3.93-5.22) M/uL Hgb (12.0-16.0) g/dl Hct (34.1-44.9) % MCV (80.0-100.0) fL MCH (25.0-34.0) pg MCHC (32.0-36.0) g/dL RDW Std Deviation (36.4-46.3) fL RDW Coeff of Cristal (11.5-14.5) % Plt Count (130-400) K/uL MPV (9.4-12.3) fL Immature Gran % (Auto) % Neut % (Auto) % Lymph % (Auto) % [place] % (Auto) % Eos % (Auto) % Baso % (Auto) % Neut # (Auto) (1.4-6.5) K/uL Lymph # (Auto) (1.2-3.4) K/uL [place] # (Auto) (0.24-0.82) K/uL Eos # (Auto) (0-0.50) K/uL Baso # (Auto) (0-0.2) K/uL Immature Gran # (Auto) (0.00-0.02) K/uL Sodium (136-145) mmol/L Potassium (3.5-5.1) mmol/L Chloride (98-107) mmol/L Carbon Dioxide (21-32) mmol/L Anion Gap (3-11) BUN (6-23) mg/dl Creatinine (0.6-1.2) mg/dl Est Cr Clr Drug Dosing ml/min Est GFR ( Amer) ml/min Est GFR (Non-Af Amer) ml/min BUN/Creatinine Ratio (10-20) Glucose (70-99(Fasting)) mg/dl Calcium (8.5-10.1) mg/dl Magnesium (1.7-2.4) mg/dl Total Bilirubin (0.2-1.0) mg/dl AST (13-39) U/L ALT (7-52) U/L Alkaline Phosphatase (34-104) U/L Troponin I High Sens (0-14) pg/ml Total Protein (6.0-8.3) gm/dl Albumin (3.4-5.0) gm/dl Globulin (2.5-4.0) gm/dl Albumin/Globulin Ratio (0.9-2) Procalcitonin (0-0.5) ng/ml TSH 0.226 L (0.300-4.500) uIu/ml Free T4 1.26 (0.61-1.60) ng/dl Urine Color Yellow Urine Appearance Clear (Clear) Urine pH 8.0 H (4.5-7.5) Ur Specific [place] 1.017 (1.000-1.030) Urine Protein Negative (Negative) Urine Glucose (UA) Negative (Negative) Urine Ketones Negative (Negative) Urine Blood Negative (Negative) Urine Nitrite Negative (Negative) Urine Bilirubin Negative (Negative) Urine Urobilinogen Negative (Negative) Ur Leukocyte Esterase Negative (Negative) Anaplasma Smear Babesia Smear SARS-CoV-2, RNA, NAAT NEGATIVE (NEGATIVE) MDM Narrative Patient was seen and evaluated as above in room B12. Review was performed of nursing notes and vital signs. I did review pertinent previous visits and patient history. After obtaining a thorough history and physical examination the above work up was performed. Patient presents to us today for assessment of what she describes as whole body numbness. She has had this ongoing and now worsening over the past few weeks. She does not have any focal deficits on examination. No signs of illness or infectious etiology. Her vital signs are stable. No chest pain or shortness of breath. Options of care were discussed with the patient. I did review her previous testing. She has had a negative CTA of the head, neck and chest recently. She has also had a negative CT scan of the abdomen from an emergent standpoint. Her blood work has been overall reassuring thus far as well. However, her symptoms do persist. The patient has not been sleeping well. She is worried about her symptoms. At this time I do believe that further assessment is warranted in the hospital and believe that she would benefit from an inpatient stay. The case was discussed with the hospitalist service. Please refer to further documentation regarding her stay. EKG reveals normal sinus rhythm at a rate of 73 bpm. QTc 447. QRS 92 Labs reveal no leukocytosis or concerning anemia. No emergent metabolic disturbance. Mild hypokalemia 3.1. No evidence of kidney or liver failure. Pro-Tino is normal. Blood culture pending. Urinalysis does not suggest infection. Tickborne testing beyond [place] still pending. COVID test negative. GCS: 15 In the evaluation and treatment of this patient the following differential diagnoses were entertained: CVA, TIA, meningitis, encephalitis, malignancy, MS, electrolyte disturbance, MS, PE, among others. Impression & Plan Numbness, Back pain, Hypokalemia Discharge Plan Visit Data Chief Complaint: Neuro Symptoms/Deficit Stated Complaint: WHOLE BODY NUMBNESS-WORSE NECK/LW BACK ED Provider: Jamarcus Cuello ED Midlevel Provider: Ricky Garrido Discharge Problem: Numbness, Back pain, Hypokalemia Patient Disposition: Admitted As Inpatient Condition: Good Discharge Instructions Interventions: ED Discharge Assessment Last Done: 02/26/22 11:31
[2022-02-26 08:17] LABS: Basophils # (auto) 0.03 K/uL (0-0.2); Basophils % (auto) 0.5 %; Eosinophils # (auto) 0.16 K/uL (0-0.50); Eosinophils % (auto) 2.9 %; Hematocrit (blood only) 43.5 % (34.1-44.9); Immature Granulocytes # (auto) 0.02 K/uL (0.00-0.02); Immature Granulocytes % (auto) 0.4 %; Lymphocytes # (auto) 1.41 K/uL (1.2-3.4); Lymphocytes % (auto) 25.1 %; Mean Corpuscular Hemoglobin 30.2 pg (25.0-34.0); Mean Corpuscular Hgb Conc 34.5 g/dL (32.0-36.0); Mean Corpuscular Volume 87.5 fL (80.0-100.0); Mean Platelet Volume 10.6 fL (9.4-12.3); Monocytes # (auto) 0.59 K/uL (0.24-0.82); Monocytes % (auto) 10.5 %; Neutrophils % (auto) 60.6 %; Platelet Count 220 K/uL (130-400); RDW Coefficient of Variation 12.4 % (11.5-14.5); RDW Standard Deviation 39.1 fL (36.4-46.3); Red Blood Count 4.97 M/uL (3.93-5.22); White Blood Count 5.61 K/ul (4.8-10.8)
[2022-02-26 08:28] LABS: Appearance Urine Clear (Clear); Bilirubin Urine Negative (Negative); Blood Urine Negative (Negative); Color Urine Yellow; Glucose Urine UA Negative (Negative); Ketones Urine Negative (Negative); Leukocyte Esterase Urine Negative (Negative); Nitrite Urine Negative (Negative); Protein Urine Negative (Negative); Specific Gravity Urine 1.017 (1.000-1.030); Urobilinogen Urine Negative (Negative)
[2022-02-26 08:41] LABS: Albumin Globulin Ratio 1.6 (0.9-2); Albumin Level 4.5 gm/dl (3.4-5.0); BUN Creatinine Ratio 20.3 (10-20); Bilirubin,Total 0.6 mg/dl (0.2-1.0); Calcium 10.1 mg/dl (8.5-10.1); Creatinine Clr Calc Pharmacy 94.9 ml/min; Est GFR (African American) 110.4 ml/min; Est GFR (Non-African American) 95.3 ml/min; Globulin 2.8 gm/dl (2.5-4.0); Magnesium 1.7 mg/dl (1.7-2.4); Potassium 3.1 mmol/L (3.5-5.1); Total Protein 7.3 gm/dl (6.0-8.3)
[2022-02-26 08:54] LABS: Thyroid Stimulating Hormone 0.226 uIu/ml (0.300-4.500)
[2022-02-26 09:28] LABS: T4 Free Thyroxine 1.26 ng/dl (0.61-1.60)
--- NOTE | 2022-02-26 10:33 | History & Physical Report ---
Date of Service February 26, 2022 Assessment & Plan (1) Numbness and tingling of both upper extremities: Plan: 61 yo presenting w/ primary c/o numbness tingling in upper and lower extremities worse x 1 month - Placed in observation to monitored bed - Regular diet ordered - OOB ad fernando - caution if she is experiencing numbness as this can put her at increased risk of fall - VS per unit - MRI brain w/ and w/o contrast to r/o MS - MRI cervical spine d/t UE numbness - f/u HS trop (although low index of suspicion for acs) (2) Back pain: Plan: - Ice/APAP - Lumbar MRI (3) Chest pain: Plan: - EKG prn cp - F/u HS trop 6 hrs from initial to exclude ACS (although extremely low suspicion of this) - Can d/c quality supervisor once this is ruled out - cp reproducible (4) Hypokalemia: Plan: - Replacement ordered (5) Hypothyroidism: Plan: - TSH actually slightly low at 0.226 w/ a normal FT4 of 1.26 - Takes Levothyroxine and Liothyronine, will continue (6) Gastroesophageal reflux disease: Plan: - Continue PPI (7) Anxiety: Plan: - Continue BuSpar Plan Etiology of pt's symptoms unclear at this time. Appears PA in EMD ordered studies to r/o tick borne illness but low suspicion of this given she is afebrile and no other specific neuro complaints. No change on cbc (no thrombocytopenia). ??Anxiety. Will await MRI results and formulate plan accordingly. Above has been d/w Dr. Johnny Elaine who will also seen and evaluate this patient. Additional orders will be implemented as warranted. History of Present Illness Chief Complaint: whole body numbness, low back pain, abd pain Primary Care Provider: Shamika Kramer MD Nasreen Purcell is a 61 yo WF with a pmhx of migraine headaches, IBS that varies between constipation and diarrhea, seasonal allergies, gerd, anxiety, and hypothyroidism who presents to the ER today c/o "whole body numbness" worse over the past month. Over the course of the past month, pt has been seen by her primary care for her routine wellness check on 02/11. She presented to the ED on 02/12 and 02/17, primary care again on 02/19 and now presents back to the ER today with ongoing c/o abd pain, chest pain, low back pain, and numbness/tingling in her upper and lower extremities. Her historical timeline precipitating today's visit is extremely tangential. She reports no particular event after which her back pain or numbness started only that she notes it has gotten worse over the past month, and even more so the last 2 weeks. She denies focal weakness, unsteady gait, or feeling like her legs are going to give out while walking. She denies issues with community assistant strength. Her chest pain is reproducible and she seems to attribute it more to a musculoskeletal issue. She denies any strenuous activity/exercise or heavy lifting prior to her back pain getting worse. No significant alleviating factors other than ice and rest. She denies loss of bowel or bladder control or saddle anesthesias. She was scheduled to have an outpatient MRI of her brain to w/u/exclude MS but has not yet had this done. She has undergone several imaging studies which have not revealed any significant abnormalities to explain her symptoms. EKG and HS trop have been negative. CT A/P revealed no acute findings, she denies n/v/d. Pain seems to be more local ized to LUQ and radiates around her back. Interestingly, pt does get some improvement in her symptoms when she takes the migraine medication (Sumatriptan). Pt has been referred to the hospitalist group for admission for further w/u of symptoms. Allergies Allergy/AdvReac Type Severity Reaction Status Date / Time omeprazole AdvReac Mild NAUSEA Verified 02/19/22 10:30 Home Medications Medication Instructions Recorded Confirmed Type cholecalciferol (vitamin D3) 125 5,000 unit PO QAM 03/15/18 02/26/22 History mcg (5,000 unit) tablet (Vitamin D3) fluticasone propionate 50 1 spray intranasal DAILY PRN Nasal 07/07/19 02/26/22 History mcg/actuation nasal Congestion spray,suspension fexofenadine 180 mg tablet 180 mg PO QAM PRN Allergy Symptoms 04/06/20 02/26/22 History albuterol sulfate 90 mcg/actuation 1 puff inhalation Q4H PRN 12/23/20 02/26/22 History aerosol inhaler (Ventolin HFA) shortness of breath or wheezing naproxen 500 mg tablet 500 mg PO Q12H PRN Migraine 01/04/21 02/26/22 Rx Headache #60 tabs dicyclomine 20 mg tablet 20 mg PO Q6 PRN abdominal pain #30 03/07/21 02/26/22 Rx tabs cyanocobalamin (vitamin B-12) 100 0 mcg PO DAILY 08/15/21 02/26/22 History mcg tablet (Vitamin B-12) liothyronine 5 mcg tablet 10 mcg PO QAM #180 tabs 10/15/21 02/26/22 Rx chlorthalidone 25 mg tablet 25 mg PO QAM #90 tabs 10/16/21 02/26/22 Rx pantoprazole 40 mg tablet,delayed 40 mg PO QAM #90 tabs 10/18/21 02/26/22 Rx release sumatriptan succinate 100 mg tablet 100 mg PO Q2H PRN migraine 11/22/21 02/26/22 Rx headache #9 tabs buspirone 5 mg tablet 5 mg PO BID PRN anxiety #60 tabs 12/12/21 02/26/22 Rx etodolac 200 mg capsule 200 mg PO Q12H PRN pain #14 caps 02/12/22 02/26/22 Rx levothyroxine 150 mcg tablet 150 mcg PO DAILY 02/12/22 02/26/22 History (Synthroid) Past Med/Surg History Medical History Abdominal bloating Benign familial tremor BILATERAL HANDS COVID-19 Dysphagia Gastroesophageal reflux disease Renny's thyroiditis Hx of gastric ulcer Hypertension Hypothyroidism Migraine Osteoarthritis Sarcoidosis "FOUND IN GALLBLADDER" ALSO IN LUNGS (NO CURRENT PROBLEMS) Sleep apnea CPAP Surgical History History of arthroscopy of knee LEFT History of bronchoscopy History of colonoscopy History of esophagogastroduodenoscopy (EGD) History of right salpingo-oophorectomy Hx of cholecystectomy [place] teeth removed Family History Mother Diabetes Cardiac disorder Malignant neoplasm of gastrointestinal tract Hypertension Stroke Colon cancer Brother Pulmonary embolism Acute venous embolism and thrombosis of deep vessels of distal lower extremity Hypertension Father Prostate cancer Non-Hodgkin lymphoma Uncle Parkinsons disease Sister Breast cancer Other Gallbladder disease Heart disease Kidney stones Denies family history of Ovarian cancer Social History Smoking Status: Never smoker Second Hand Exposure: No; Hx Alcohol Use: No Hx Substance Use: No Preferred Language: Tamazight Communication Ability: Effective Visual Impairment: No Limitations Hearing Ability: Normal Box Spinner Required: No Beliefs That Will Affect Care: None marital status: Single Current Living Situation: Alone current occupational status: employed current occupation: [employer] Other Information That Helps Us Care for You: No Feels Safe at Home: Yes Safety Concerns: Feels Safe At This Time Childhood Exposure to Second-Hand Smoke: No Diet Comment: regular caffeine: Yes during the past year weight has: remained stable Dental Care, Regularly: Yes Physical Activity Frequency: Daily Seatbelt Use: always Sunscreen Use: Yes Assistive Devices: None Review of Systems Review of Systems: All systems reviewed and are unremarkable except as noted in HPI and below. Denies fever, chills, fatigue, headache, nasal congestion, sore throat, cough, shortness of breath, palpitations, orthopnea, PND, n/v/d, constipation, dysuria, hematuria, frequency, joint pain or swelling, easy bruising or bleeding, skin lesions or rashes. Physical Exam Physical Exam: GENERAL: 61 yo Well-developed, well-nourished (obese) WF. NAD. EYES: EOMI. PERRLA. Anicteric. HENT: Moist mucous membranes. No scleral icterus. No cervical lymphadenopathy. LUNGS: Clear to auscultation bilaterally. No accessory muscle use. No W/R/R. CARDIOVASCULAR: Regular rate and rhythm. No M/G/R. No JVD. ABDOMEN: Soft, non-tender and non-distended. No palpable masses. Bowel sounds normoactive x 4 quad. EXTREMITIES: No edema. Non-tender. Peripheral pulses +2/4. NEUROLOGIC: A&O x3. No focal neurological deficits. CN II-XII grossly intact. PSYCHIATRIC: Cooperative. Appropriate mood and affect. SKIN: Warm, dry, intact. No rashes or lesions. Results & Data Results & Data ([facility]) Vital Signs (Past 12 Hours) Vital Signs Temp Pulse Pulse Resp BP BP Pulse Ox 02/26/22 10:00 69 20 121/90 95 02/26/22 07:12 16 02/26/22 07:34 16 02/26/22 07:15 36.7 C 87 18 145/78 H 98 O2 Del Method 02/26/22 10:00 Room Air 02/26/22 07:12 02/26/22 07:34 Room Air 02/26/22 07:15 Room Air Laboratory Results 02/26/22 07:50 02/26/22 07:[address] ANGIOGRAM OF THE NECK CLINICAL HISTORY: Numbness. Recent chiropractic manipulation. COMPARISON STUDY: CT of the cervical spine dated 04/06/2020. TECHNIQUE: Following the IV administration of 115 of Optiray 320, CT angiogram of the neck was performed from the aortic arch to the skull base. Images are reviewed in the axial, sagittal, and coronal planes. 3-D MIPS images are created and assessed. IV contrast was administered without complication. All measurements were calculated based on NASCET criteria. A dose lowering technique was utilized adhering to the principles of ALARA. FINDINGS: Thoracic aorta: There is mild atherosclerotic calcification of the thoracic aorta. Visualized portions of the thoracic aorta are normal in caliber. The aortic arch demonstrates standard 3-vessel anatomy. Right carotid arterial system: The right common carotid artery is widely patent, as are the right internal and external carotid arteries. There is tortuosity of the right internal carotid artery. Left carotid arterial system: The left common carotid artery is widely patent, as are the left internal and external carotid arteries. Vertebral arteries: The vertebral arteries are widely patent bilaterally noting mild left-sided dominance. No dissection is seen. Subclavian arteries: Widely patent bilaterally. Intracranial vasculature: The visualized intracranial vessels at the skull base are patent. Jugular veins: Widely patent bilaterally. Brain parenchyma: The visualized brain parenchyma the skull base is within normal limits. Lung apices: Partially visualized upper lobe lung parenchyma appears clear. Soft tissues: The visualized pharyngeal soft tissues are normal in appearance noting angiographic phase technique. The oropharyngeal airway appears widely patent. The salivary and thyroid glands are normal in appearance. No cervical lymphadenopathy is seen. Skeletal structures: The visualized calvarium at the skull base appears intact. The imaged cervical spine is maintained noting mild multilevel spondylosis. Sinuses and mastoids: There is trace mucosal thickening in the left maxillary antrum. The remaining visualized paranasal sinuses are clear. The mastoid air cells are well pneumatized. IMPRESSION: Unremarkable CT angiogram of the neck. ACT 112: Negative or not required by law. Electronically signed by: Jamarcus Lezama M.D. 02/18/2022 7:05 AM Dictated:02/18/22700 Transcribed: 02/18/22700 CT angio head w con CLINICAL HISTORY: 61 years-old Female with numbness, recent chiro manip. Acute strokelike symptoms COMPARISON STUDY: CT neck and head CT studies of same day TECHNIQUE: Following the IV administration of 115 cc of Optiray, CT angiogram of the brain was performed from the skull base to the vertex. Images are reviewed in the axial, sagittal, and coronal planes. 3-D MIPS images are created and assessed. IV contrast was administered without complication. All measurements were obtained according to NASCET criteria. A dose lowering technique was utilized adhering to the principles of ALARA. CT DOSE: 1202.38 mGy.cm FINDINGS: CT ANGIOGRAM OF THE BRAIN: The imaged bilateral internal carotid arteries are patent. The bilateral anterior and middle cerebral arteries are also patent. The vertebrobasilar system and posterior cerebral arteries are widely patent. origin of the right posterior cerebral artery. There is no aneurysm, high-grade stenosis, or proximal branch occlusion identified. Dural sinuses appear patent. IMPRESSION: Unremarkable CTA of the head. ACT 112: Negative or not required by law. The above report was generated using voice recognition software. It may contain grammatical, syntax or spelling errors. Electronically signed by: Chris Goncalves M.D. 02/18/2022 8:33 AM Dictated:02/18/22828 Transcribed: 02/18/22828 ECG Additional Comments: NSR w/o acute st-t wave changes Supervising Physician Co-Signing Physician Notes I supervised Josiane Licea PA-C on the care of this patient. I interviewed and examined the patient independently of her. The plan is as written in her note except for any following changes/exceptions: None PG Care Time/CCT Total # of Minutes Spent Total Time Spent with Patient: Total time spent is greater than 50% in coordination of care (as documented) at patient's floor/unit and/or counseling patient: Coding Level of Care Code INT OBSERVATION CARE 70M LVL 3 Diagnoses Numbness and tingling of both upper extremities R20.0; R20.2 Back pain M54.9 Chest pain R07.9 Hypokalemia E87.6 Hypothyroidism E03.9 Gastroesophageal reflux disease K21.9 Anxiety F41.9
--- NOTE | 2022-02-26 11:48 | Electrocardiogram Report ---
Test Reason : Blood Pressure : / mmHG Vent. Rate : 073 BPM Atrial Rate : 073 BPM P-R Int : 168 ms QRS Dur : 092 ms QT Int : 406 ms P-R-T Axes : -21 -26 -22 degrees QTc Int : 447 ms Normal sinus rhythm Possible Old Inferior infarct Poor R wave progression, consider anterior NM vs. lead placement vs. LVH Abnormal ECG When compared with ECG of 17-FEB-2022 19:54, Criteria for Old Inferior infarct is now Present Confirmed by Thomas Harding ([id number]) on 02/26/2022 11:48:06 AM Referred By: REFERRED SELF Confirmed By:Thomas Harding
[2022-02-26] MEDS ORDERED: POLYETHYLENE (MIRALAX) 17 GM PACK PO PRN (11:56)
[2022-02-26] MEDS ORDERED: POTASSIUM CHLORIDE CRTAB 20 MEQ TABCR PO STA ×2 (11:56→14:34)
[2022-02-26] MEDS ORDERED: ONDANSETRON INJ 2 MG/ML 2 ML VIAL IV PRN (11:56)
[2022-02-26] MEDS ORDERED: DICYCLOMINE HCL 20 MG TAB PO PRN (11:56)
[2022-02-26] MEDS ORDERED: ALUMINUM/MAGNESIUM SUSP 30 ML UDC PO PRN (11:56)
[2022-02-26] MEDS ORDERED: MAGNESIUM HYDROXIDE SUSP 30 ML UDC PO PRN (11:56)
[2022-02-26] MEDS ORDERED: busPIRone 5 MG TAB PO PRN (11:56)
--- NOTE | 2022-02-26 12:38 | Magnetic Resonance Report ---
CLINICAL HISTORY: arm numbness TECHNIQUE: MRI of the cervical spine is performed utilizing various T1 and T2 sequences in the axial and sagittal planes. IV contrast was not administered for this examination. Comparison: Comparison is made to MRI cervical spine 01/03/2013 FINDINGS: The alignment is anatomical. C2-C3: Unremarkable. C3-C4: Mild posterior disc bulge is seen without significant canal or neuroforaminal stenosis. C4-C5: Small posterior disc bulge is seen with minimal canal stenosis and mild bilateral neuroforamin al stenosis. C5-C6: Minimal posterior disc bulge is seen without significant canal or neuroforaminal stenosis. C6-C7: Small posterior disc bulge with mild canal stenosis and no significant neuroforaminal stenosis . C7-T1: Unremarkable. The spinal ligaments are intact, without evidence of disruption or abnormal signal intensity. The spi nal cord is normal in signal intensity and there is no evidence of cord edema. There is no evidence o f an extradural, intradural, extramedullary or intramedullary lesion. Visualized soft tissues are nor mal. Visualized brain parenchyma is normal. IMPRESSION: Small posterior disc bulges are seen with up to mild canal and neural foraminal stenosis. Findings ap pear essentially unchanged from exam of 2013. ACT 112: Negative or not required by law. Electronically signed by: Trey Woodward M.D. 02/26/2022 12:36 PM
--- NOTE | 2022-02-26 13:27 | Magnetic Resonance Report ---
LUMBAR SPINE MRI HISTORY: back pain with leg numbness TECHNIQUE: Multiplanar multisequence MRI of the lumbar spine was performed without the use of contras t. COMPARISON: None. FINDINGS: For the purpose of the report the L5-S1 disc space will be located on axial image 27 of 30. Mild levoscoliosis of the lumbar spine. Mild disc space narrowing at L1-L2. The conus terminates at t he L1-L2 level. No fracture or subluxation. Scst-mp-musimvrh facet degenerative changes within the lo wer lumbar spine. Paravertebral soft tissues are unremarkable. L1-L2: Broad-based posterior disc bulge without significant central canal or neural foraminal narrowi ng. L2-L3: Small broad-based posterior disc bulge asymmetric to the left with a small right foraminal yung ular tear. No disc herniations. No significant central canal or neural foraminal narrowing. L3-L4: Small broad-based posterior disc bulge with ligamentum and facet hypertrophy without significa nt central canal or neural foraminal narrowing. L4-L5: Small broad-based posterior disc bulge without significant central canal or neural foraminal n arrowing. L5-S1: No central canal narrowing. There is a small right foraminal focal disc protrusion which abuts the exiting right L5 nerve root and results in mild right-sided neural foraminal narrowing. This is best seen on axial image 27 of 30.. IMPRESSION: 1. No fracture or subluxation within the lumbar spine. 2. Mild multilevel degenerative changes as described above 3. A small right foraminal focal disc protrusion at L5-S1 which abuts the exiting right L5 nerve root . 4. Mild levoscoliosis. ACT 112: Negative or not required by law. Electronically signed by: Everett Ferreira M.D. 02/26/2022 1:25 PM
[2022-02-26] MEDS ORDERED: GADOBUTROL 65ML VIAL IV ONE (14:15)
--- NOTE | 2022-02-26 14:30 | Magnetic Resonance Report ---
MR brain MS wo/w con CLINICAL HISTORY: body numbness, r/o MS COMPARISON STUDY: MRI of the brain December 24, 2012. Head CT and CTA of the head February 17, 2022. TECHNIQUE: Utilizing a 1.5 Sveta magnet and dedicated coil, multiplanar, multiecho imaging of the bra in was performed pre and postcontrast administration according to the multiple sclerosis protocol. In travenous injection of 9.5 cc of Gadavist was uneventful. FINDINGS: There are no foci of restricted diffusion to suggest acute infarct. No acute intracranial h emorrhage, midline shift or mass effect is present. Brain volume is normal. Ventricular system is nor mal. Basal cisterns are patent. No extra axial collections are present. Flow-voids for the major intr acranial vessels are present. There is no intracranial mass or pathologic enhancement. There are reno ral small white matter T2 hyperintense foci which have slightly increased since MRI of December 24, 2012. Otherwise, appearance of the brain is unchanged. There is no parenchymal enhancement to suggest acti ve demyelination. Calvarial signal is normal. No evidence for sinusitis. Orbits are unremarkable on t his nondedicated exam. There is no mastoid fluid. IMPRESSION: 1. No acute intracranial findings. 2. No intracranial mass or pathologic enhancement. 3. A few white matter T2 hyperintense foci which have slightly progressed since MRI of December 24, 2012. Although nonspecific, these are not strongly suggestive of demyelinating disease and favor small ves edin disease. ACT 112: Negative or not required by law. Electronically signed by: Felipe Mclean M.D. 02/26/2022 2:29 PM
[2022-02-26] MEDS: ACETAMINOPHEN 325 MG TAB PO PRN (14:42)
--- NOTE | 2022-02-26 16:35 | Discharge Summary ---
Date of Service February 26, 2022 Admission HPI Per Admitting Provider Nasreen Purcell is a 61 yo WF with a pmhx of migraine headaches, IBS that varies between constipation and diarrhea, seasonal allergies, gerd, anxiety, and hypothyroidism who presents to the ER today c/o "whole body numbness" worse over the past month. Over the course of the past month, pt has been seen by her primary care for her routine wellness check on 02/11. She presented to the ED on 02/12 and 02/17, primary care again on 02/19 and now presents back to the ER today with ongoing c/o abd pain, chest pain, low back pain, and numbness/tingling in her upper and lower extremities. Her historical timeline precipitating today's visit is extremely tangential. She reports no particular event after which her back pain or numbness started only that she notes it has gotten worse over the past month, and even more so the last 2 weeks. She denies focal weakness, unsteady gait, or feeling like her legs are going to give out while walking. She denies issues with [employer] strength. Her chest pain is reproducible and she seems to attribute it more to a musculoskeletal issue. She denies any strenuous activity/exercise or heavy lifting prior to her back pain getting worse. No significant alleviating factors other than ice and rest. She denies loss of bowel or bladder control or saddle anesthesias. She was scheduled to have an outpatient MRI of her brain to w/u/exclude MS but has not yet had this done. She has undergone several imaging studies which have not revealed any significant abnormalities to explain her symptoms. EKG and HS trop have been negative. CT A/P revealed no acute findings, she denies n/v/d. Pain seems to be more localized to LUQ and radiates around her back. Interestingly, pt does get some improvement in her symptoms when she takes the migraine medication (Sumatriptan). Pt has been referred to the hospitalist group for admission for further w/u of symptoms. Principal Diagnosis 1. UE and LE numbness 2. Chest pain, likely musculoskeletal, ACS ruled out 3. Abdominal pain, nonspecific and unknown etiology 4. Hypokalemia-corrected Discharge Exam GENERAL: 61 yo Well-developed, well-nourished (obese) WF. NAD. LUNGS: Clear to auscultation bilaterally. No accessory muscle use. No W/R/R. CARDIOVASCULAR: Regular rate and rhythm. No M/G/R. No JVD. ABDOMEN: Soft, non-tender and non-distended. No palpable masses. BS normoactive x 4 quad. EXTREMITIES: No edema. Non-tender. Peripheral pulses +2/4. NEUROLOGIC: A&O x3. No focal neurological deficits. CN II-XII grossly intact. PSYCHIATRIC: Cooperative. Appropriate mood and affect. SKIN: Warm, dry, intact. No rashes or lesions. Discharge Data Allergies Allergy/AdvReac Type Severity Reaction Status Date / Time omeprazole AdvReac Mild NAUSEA Verified 02/19/22 10:30 Consultations 02/26/22 08:36 ED Decision to Admit Stat Ordered Studies Brain MRI 02/26/22 09:30 MR brain MS wo/w con CLINICAL HISTORY: body numbness, r/o MS COMPARISON STUDY: MRI of the brain December 24, 2012. Head CT and CTA of the head February 17, 2022. TECHNIQUE: Utilizing a 1.5 Sveta magnet and dedicated coil, multiplanar, mu ltiecho imaging of the brain was performed pre and postcontrast administration according to the multiple sclerosis protocol. Intravenous injection of 9.5 cc of Gadavist was uneventful. FINDINGS: There are no foci of restricted diffusion to suggest acute infarct. No acute intracranial hemorrhage, midline shift or mass effect is present. Brain volume is normal. Ventricular system is normal. Basal cisterns are patent. No extra axial collections are present. Flow-voids for the major intracranial vessels are present. There is no intracranial mass or pathologic enhancement. There are several small white matter T2 hyperintense foci which have slightly increased since MRI of December 24, 2012. Otherwise, appearance of the brain is unchanged. There is no parenchymal enhancement to suggest active demyelination. Calvarial signal is normal. No evidence for sinusitis. Orbits are unremarkable on this nondedicated exam. There is no mastoid fluid. IMPRESSION: 1. No acute intracranial findings. 2. No intracranial mass or pathologic enhancement. 3. A few white matter T2 hyperintense foci which have slightly progressed since MRI of December 24, 2012. Although nonspecific, these are not strongly suggestive of demyelinating disease and favor small vessel disease. ACT 112: Negative or not required by law. Electronically signed by: Felipe Mclean M.D. 02/26/2022 2:29 PM Cervical Spine MRI 02/26/22 09:30 CLINICAL HISTORY: arm numbness TECHNIQUE: MRI of the cervical spine is performed utilizing various T1 and T2 sequences in the axial and sagittal planes. IV contrast was not administered for this examination. Comparison: Comparison is made to MRI cervical spine 01/03/2013 FINDINGS: The alignment is anatomical. C2-C3: Unremarkable. C3-C4: Mild posterior disc bulge is seen without significant canal or neuroforaminal stenosis. C4-C5: Small posterior disc bulge is seen with minimal canal stenosis and mild bilateral neuroforaminal stenosis. C5-C6: Minimal posterior disc bulge is seen without significant canal or neuroforaminal stenosis. C6-C7: Small posterior disc bulge with mild canal stenosis and no significant neuroforaminal stenosis. C7-T1: Unremarkable. The spinal ligaments are intact, without evidence of disruption or abnormal signal intensity. The spinal cord is normal in signal intensity and there is no evidence of cord edema. There is no evidence of an extradural, intradural, extramedullary or intramedullary lesion. Visualized soft tissues are normal. Visualized brain parenchyma is normal. IMPRESSION: Small posterior disc bulges are seen with up to mild canal and neural foraminal stenosis. Findings appear essentially unchanged from exam of 2013. ACT 112: Negative or not required by law. Electronically signed by: Trey Woodward M.D. 02/26/2022 12:36 PM Lumbar Spine MRI 02/26/22 10:19 LUMBAR SPINE MRI HISTORY: back pain with leg numbness TECHNIQUE: Multiplanar multisequence MRI of the lumbar spine was performed without the use of contrast. COMPARISON: None. FINDINGS: For the purpose of the report the L5-S1 disc space will be located on axial image . Mild levoscoliosis of the lumbar spine. Mild disc space narrowing at L1-L2. The conus terminates at the L1-L2 level. No fracture or subluxation. [id number] facet degenerative changes within the lower lumbar spine. Paravertebral soft tissues are unremarkable. L1-L2: Broad-based posterior disc bulge without significant central canal or neural foraminal narrowing. L2-L3: Small broad-based posterior disc bulge asymmetric to the left with a small right foraminal annular tear. No disc herniations. No significant central canal or neural foraminal narrowing. L3-L4: Small broad-based posterior disc bulge with ligamentum and facet hypertrophy without significant central canal or neural foraminal narrowing. L4-L5: Small broad-based posterior disc bulge without significant central canal or neural foraminal narrowing. L5-S1: No central canal narrowing. There is a small right foraminal focal disc protrusion which abuts the exiting right L5 nerve root and results in mild right-sided neural foraminal narrowing. This is best seen on axial image 27 of 30.. IMPRESSION: 1. No fracture or subluxation within the lumbar spine. 2. Mild multilevel degenerative changes as described above 3. A small right foraminal focal disc protrusion at L5-S1 which abuts the exiting right L5 nerve root. 4. Mild levoscoliosis. ACT 112: Negative or not required by law. Electronically signed by: Everett Ferreira M.D. 02/26/2022 1:25 PM Hospital Course (1) Numbness and tingling of both upper extremities: 61 yo presenting w/ primary c/o numbness tingling in upper and lower extremities worse x 1 month - Placed in observation to monitored bed - Regular diet ordered - VS per unit - MRI brain w/ and w/o contrast to r/o MS-no findings c/f demyelinating disease - MRI cervical spine d/t UE numbness-no significant abnormalities, note results above - PCP could consider referral to neuro as outpatient (2) Back pain: - Ice/APAP/NSAIDs - Lumbar MRI - results above, slight disc bulge at L5-S1 - Could consider referral to PT and orthospine v pain management - Could also consider trial of OTC Lidocaine patches to lower back (3) Chest pain: - EKG prn cp (none since admission) - F/u HS trop 6 hrs from initial to exclude ACS - f/u HS trop remains unchanged - cp reproducible therefore suspect pain is more musculoskeletal in nature (4) Hypokalemia: - Replacement ordered (5) Hypothyroidism: - TSH actually slightly low at 0.226 w/ a normal FT4 of 1.26 - Takes Levothyroxine and Liothyronine, will continue (6) Gastroesophageal reflux disease: - Continue PPI (7) Anxiety: - Continue BuSpar Plan Etiology of pt's symptoms unclear at this time. Appears PA in EMD ordered studies to r/o tick borne illness but low suspicion of this given she is afebrile and no other specific neuro complaints. No change on cbc (no thrombocytopenia). Symptoms could be anxiety driven. Again, considerations could be made to refer to neurology, orthospine v pain management for back issues. Ultimately, she will need to f/u with her established pcp within 1 week of discharge. Plan d/w Dr. Johnny Elaine who has also seen and evaluated this pat ient and agrees with aforementioned. Total Time Total Time Spent Total Time Spent (In Minutes): <30 minutes Discharge Plan Discharge Items Patient Disposition: Home - Self-Care Reason For Visit: NUMBNESS Discharge Diagnosis: Numbness in upper and lower extremities, not clear cause of symptoms Activity: Resume your previous activity Non-emergency contact: Primary Care Provider Call non-emergency contact if: you have any medication questions Follow-up/Referrals: Franco Moore MD [Physician] - (upper and lower extremity weakness, nonspecific. MRI of cervical/brain/lumbar unremarkable) Shamika Kramer MD [Primary Care Provider] - Diet: Regular Addtl Attending Provider Instructions: You were hospitalized due to back pain and lower extremity as well as upper extremity numbness. You had an MRI of your brain, neck, and lower back which did not reveal any significant abnormalities to explain your symptoms. You could consider follow up with neurology for further work up of these symptoms. You did have a very small disc bulge noted at the level of L5. If your back pain persists, could either consider referral to pain management versus Dr. Rogers (orthopedic spine surgeon). Your primary care provider can assist you with this. Could consider purchasing over the counter Lidocaine patches and using to affected area as directed. It is noted on your medication list that you are taking two medications that are both non-steroidal anti-inflammatories (Etodolac and Naproxen). Please discontinue one of these medications if you are still taking both. Taking these medications can be hard on your stomach and cause ulcers. It is recommended that you follow up with your primary care provider within 1 week of discharge from the hospital. If you have any questions following your discharge, call the nonemergency number listed on your paperwork. In the event of a medical emergency, call 911. Pending Studies at Discharge: No Stand-Alone Forms: [employer], Smoking Cessation Medications and DC Order Prescriptions: Continued naproxen 500 mg tablet 500 mg PO Q12H PRN (Reason: Migraine Headache) Qty: 60 5RF Rx Instructions: TAKE WITH IMITREX WHEN NEEDED FOR MIGRAINES liothyronine 5 mcg tablet 10 mcg PO QAM Qty: 180 1RF chlorthalidone 25 mg tablet 25 mg PO QAM Qty: 90 3RF pantoprazole 40 mg tablet,delayed release (DR/EC) 40 mg PO QAM Qty: 90 1RF sumatriptan succinate 100 mg tablet 100 mg PO Q2H PRN (Reason: migraine headache) Qty: 9 5RF dicyclomine 20 mg tablet 20 mg PO Q6 PRN (Reason: abdominal pain) Qty: 30 1RF Label Comments: NEW RX buspirone 5 mg tablet 5 mg PO BID PRN (Reason: anxiety) Qty: 60 5RF cholecalciferol (vitamin D3) [Vitamin D3] 5,000 unit Tablet 5,000 unit PO QAM fluticasone propionate 50 mcg/actuation spray,suspension 1 spray INTNAS DAILY PRN (Reason: Nasal Congestion) Rx Instructions: administer into each nostril fexofenadine 180 mg Tablet 180 mg PO QAM PRN (Reason: Allergy Symptoms) albuterol sulfate [Ventolin HFA] 90 mcg/actuation HFA aerosol inhaler 1 puff inhalation Q4H PRN (Reason: shortness of breath or wheezing) levothyroxine [Synthroid] 150 mcg tablet 150 mcg PO DAILY cyanocobalamin (vitamin B-12) [Vitamin B-12] 100 mcg Tablet 0 mcg PO DAILY Discontinued etodolac 200 mg capsule 200 mg PO Q12H PRN (Reason: pain) Qty: 14 0RF Discharge Orders: Discharge Order (Routine); Ordered 02/26/22 Ordered By: Josiane Licea Admission Data Admit Date/Time: 02/26/22 09:23 Attending Provider: Johnny Elaine Admit Provider: Johnny Elaine Primary Care Provider: Shamika Kramer Other Providers: Johnny Elaine Coding Level of Care Code OBSERV/HOSP SAME DATE LVL 3 Diagnoses Numbness and tingling of both upper extremities R20.0; R20.2 Back pain M54.9 Chest pain R07.9 Hypokalemia E87.6 Hypothyroidism E03.9 Gastroesophageal reflux disease K21.9 Anxiety F41.9
[2022-02-26 18:19] LABS: Folate (Folic Acid) 15.64 ng/ml (>5.38)
[2022-02-27 07:46] LABS: Hematocrit (blood only) 44.6 % (34.1-44.9); Hemoglobin 15.5 g/dl (12.0-16.0); Mean Corpuscular Hemoglobin 30.2 pg (25.0-34.0); Mean Corpuscular Hgb Conc 34.8 g/dL (32.0-36.0); Mean Corpuscular Volume 86.9 fL (80.0-100.0); Mean Platelet Volume 10.7 fL (9.4-12.3); Platelet Count 196 K/uL (130-400); RDW Coefficient of Variation 12.4 % (11.5-14.5); RDW Standard Deviation 39.1 fL (36.4-46.3); Red Blood Count 5.13 M/uL (3.93-5.22); White Blood Count 5.15 K/ul (4.8-10.8)
[2022-02-27 08:21] LABS: BUN Creatinine Ratio 28.4 (10-20); Creatinine Clr Calc Pharmacy 96.5 ml/min; Est GFR (African American) 110.7 ml/min; Est GFR (Non-African American) 95.5 ml/min; Magnesium 1.8 mg/dl (1.7-2.4); Potassium 3.4 mmol/L (3.5-5.1)
[2022-02-27] MEDS: ACETAMINOPHEN 325 MG TAB PO PRN ×2 (09:28→23:05)
[2022-02-27] MEDS: PANTOprazole 40 MG TAB PO SCH (09:28)
[2022-02-27] MEDS: CHLORTHALIDONE 25 MG TAB PO SCH (09:28)
[2022-02-27] MEDS: DEXTROSE 10% 1,000 ML IV SCH ×2 (13:19→21:57)
--- NOTE | 2022-02-27 14:35 | Hospitalist Progress Note ---
Date of Service February 27, 2022 Assessment & Plan (1) Numbness and tingling of both upper extremities: Plan: Ddx is quite broad, including acute intermittent porphyria, rheumatologic/autoimmune (RF, PAGE, Ro/La all sent), immunoglobin disorder (SPEP/UPEP sent). MRI brain/cervical spine/lumbar spine all stable or generally within normal limits, so anatomic cause seems unlikely. Possible sleep disorder also as the attacks seem to wake her up in the morning. - Discussed with oncology and neurology today - Will start D10. Without clear cut evidence of AIP, would not start hemin. - All other labs still pending. Would need to follow up with rheumatology if labs are positive. Consider follow-up with sleep medicine for sleep disorders. - Some consideration for Covid-related neuropathy. Some association with small- fiber neuropathy. Encouraged her to follow up with [facility] study which a friend had told her about. - Trial gabapentin tonight. (2) Back pain: Plan: Lumbar MRI on 02/26 showed "small right foraminal focal disc protrusion at L5-S1 which abuts the exiting right L5 nerve root." - Ice/APAP - Can follow up with Dr. Rogers, massage therapy, or chiropracter as needed. (3) Chest pain: Plan: Troponin stable at 3.0. EKG with poor R-wave progression, but otherwise not concerning. Not cardiac in nature. - Tylenol - Consider Voltaren gel if needed. (4) Hypokalemia: Plan: - Replacement ordered (5) Hypothyroidism: Plan: TSH actually slightly low at 0.226 w/ a normal FT4 of 1.26. - Takes Levothyroxine and Liothyronine, will continue (6) Gastroesophageal reflux disease: Plan: - Continue PPI (7) Anxiety: Plan: - Continue BuSpar Plan VTE ppx: SCDs, ambulating frequently in the hallway Admission and Anticipated Discharge Date Admission Date: February 26, 2022 Subjective Had another attack overnight with continued abdominal pain, numbness, tingling of hands/face/feet. No nausea, no throwing up, no diarrhea or constipation. Reports no fevers/chills, chest pain, shortness of breath. Physical Exam Constitutional: WD/WN, vitals as above + acute distress Eyes: EOM intact bilaterally; no conjunctival abnormality ENMT: external ear and nose normal, oropharynx normal Neck: trachea midline, no thyromegaly normal visual inspection Respiratory: normal respiratory effort, lungs clear to auscultation no respiratory distress Cardiovascular: RRR, no murmur, no edema Gastrointestinal (Abdomen): Inspection/Auscultation: abdomen normal to inspection; abdomen not distended Musculoskeletal: no cyanosis or clubbing, extremities motor strength 5/5 Skin: no rashes, warm and dry Neurologic: moves all extremities and awake Psychiatric: Orientation: alert, oriented to person and cooperative Results & Data Results & Data ([facility]) Vital Signs (Past 12 Hours) Vital Signs Temp Pulse Pulse Pulse Resp BP Pulse Ox 02/27/22 12:00 36.7 C 64 20 132/85 96 02/27/22 11:18 36.7 C 59 L 16 123/80 95 02/27/22 07:31 62 02/27/22 06:32 36.7 C 74 20 138/74 96 02/27/22 04:06 36.8 C 70 18 115/70 94 O2 Del Method 02/27/22 12:00 Room Air 02/27/22 11:18 Room Air 02/27/22 07:31 02/27/22 06:32 Room Air 02/27/22 04:06 Room Air PG Care Time/CCT Total # of Minutes Spent Total Time Spent with Patient: Total time spent is greater than 50% in coordination of care (as documented) at patient's floor/unit and/or counseling patient: Coding Level of Care Code 00958 Subseq Obs Care Lvl 3 Diagnoses Numbness and tingling of both upper extremities R20.0; R20.2 Back pain M54.9 Chest pain R07.9 Hypokalemia E87.6 Hypothyroidism E03.9 Gastroesophageal reflux disease K21.9 Anxiety F41.9
[2022-02-27] MEDS ORDERED: MoRPHine SULFATE 2 MG/ML CARP IV PRN (15:48)
--- NOTE | 2022-02-27 17:00 | XRay Report ---
KUB HISTORY: Abdominal bloating. Stomach pain COMPARISON: Chest and abdominal series 11/30/2017. FINDINGS: The bowel gas pattern is unremarkable. There are no dilated loops of small bowel to suggest an obstruction. No renal calculi. No ureteral calculi. Calcifications in the deep pelvis likely rep resent phleboliths. These remain unchanged. Prior cholecystectomy. Small to moderate amount of well-f ormed stool within the colon most pronounced within the proximal colon. No pneumoperitoneum or pneuma tosis. Mild pressure scoliosis of the lumbar spine, unchanged. IMPRESSION: 1. No evidence for bowel obstruction. 2. Small to moderate amount of well-formed stool seen throughout the colon. ACT 112: Negative or not required by law. Electronically signed by: Everett Ferreira M.D. 02/27/2022 4:58 PM
[2022-02-28] MEDS: DEXTROSE 10% 1,000 ML IV SCH (05:58)
[2022-02-28] MEDS: PANTOprazole 40 MG TAB PO SCH (08:05)
[2022-02-28] MEDS: CHLORTHALIDONE 25 MG TAB PO SCH (08:05)
--- NOTE | 2022-02-28 18:26 | Discharge Summary ---
Date of Service February 28, 2022 Admission HPI Per Admitting Provider Nasreen Purcell is a 61 yo WF with a pmhx of migraine headaches, IBS that varies between constipation and diarrhea, seasonal allergies, gerd, anxiety, and hypothyroidism who presents to the ER today c/o "whole body numbness" worse over the past month. Over the course of the past month, pt has been seen by her primary care for her routine wellness check on 02/11. She presented to the ED on 02/12 and 02/17, primary care again on 02/19 and now presents back to the ER today with ongoing c/o abd pain, chest pain, low back pain, and numbness/tingling in her upper and lower extremities. Her historical timeline precipitating today's visit is extremely tangential. She reports no particular event after which her back pain or numbness started only that she notes it has gotten worse over the past month, and even more so the last 2 weeks. She denies focal weakness, unsteady gait, or feeling like her legs are going to give out while walking. She denies issues with hand sewer shoes strength. Her chest pain is reproducible and she seems to attribute it more to a musculoskeletal issue. She denies any strenuous activity/exercise or heavy lifting prior to her back pain getting worse. No significant alleviating factors other than ice and rest. She denies loss of bowel or bladder control or saddle anesthesias. She was scheduled to have an outpatient MRI of her brain to w/u/exclude MS but has not yet had this done. She has undergone several imaging studies which have not revealed any significant abnormalities to explain her symptoms. EKG and HS trop have been negative. CT A/P revealed no acute findings, she denies n/v/d. Pain seems to be more localized to LUQ and radiates around her back. Interestingly, pt does get some improvement in her symptoms when she takes the migraine medication (Sumatriptan). Pt has been referred to the hospitalist group for admission for further w/u of symptoms. Principal Diagnosis Numbness of arms, legs, face Abdominal pain Discharge Exam Constitutional WD/WN, vitals as above + acute distress Eyes EOM intact bilaterally; no conjunctival abnormality ENMT external ear and nose normal, oropharynx normal Neck trachea midline, no thyromegaly normal visual inspection Respiratory normal respiratory effort, lungs clear to auscultation no respiratory distress Cardiovascular RRR, no murmur, no edema Gastrointestinal (Abdomen) Inspection/Auscultation: abdomen normal to inspection; abdomen not distended Musculoskeletal no cyanosis or clubbing, extremities motor strength 5/5 Skin no rashes, warm and dry Neurologic moves all extremities and awake Psychiatric Orientation: alert, oriented to person and cooperative Discharge Data Allergies Allergy/AdvReac Type Severity Reaction Status Date / Time omeprazole AdvReac Mild NAUSEA Verified 02/19/22 10:30 Consultations 02/26/22 08:36 ED Decision to Admit Stat Ordered Studies 02/26/22 09:30 MR brain MS wo/w con Stat MR cervical spine wo con Stat 02/26/22 10:19 MRI Lumbar Spine [MR lumbar spine wo con] Stat Hospital Course (1) Numbness and tingling of both upper extremities: Ddx is quite broad, including acute intermittent porphyria, rheumatologic/autoimmune (RF, PAGE, Ro/La all sent), immunoglobin disorder (SPEP/UPEP sent). MRI brain/cervical spine/lumbar spine all stable or generally within normal limits, so anatomic cause seems unlikely. Possible sleep disorder also as the attacks seem to wake her up in the morning. - Discussed with oncology - Started D10W on 02/27. Without clear cut evidence of AIP, would not start hemin. - All other labs still pending. Would need to follow up with rheumatology if labs are positive. Consider follow-up with sleep medicine for sleep disorders. - Some consideration for Covid-related neuropathy. Some association with small-fiber neuropathy. Encouraged her to follow up with [facility] study which a friend had told her about vs. [facility] neurolog[place] as initial next step. - Trialing gabapentin for 1 week or so. Can adjust with PCP if it is moderately helpful. On 02/28, had BM and abdominal pain was modestly improved. Reported numbness/tingling in arms/legs had improved somewhat as well. She had only received about 8 hours of IV fluids as it was turned off overnight (unsure why) and then her IV infiltrated. Also, we did try to leave out urine for several hours without any change in color. Given improvement, patient felt reassured. AIP still seems unlikely given its rarity. Given patient improvement, I did feel it was safe to discharge patient with close follow up on labs. (2) Back pain: Lumbar MRI on 02/26 showed "small right foraminal focal disc protrusion at L5-S1 which abuts the exiting right L5 nerve root." - Ice/APAP - Can follow up with Dr. Rogers, massage therapy, or chiropracter as needed. (3) Chest pain: Troponin stable at 3.0. EKG with poor R-wave progression, but otherwise not concerning. Not cardiac in nature. - Tylenol - Consider Voltaren gel if needed. (4) Hypokalemia: - Replacement ordered (5) Hypothyroidism: TSH actually slightly low at 0.226 w/ a normal FT4 of 1.26. - Takes Levothyroxine and Liothyronine, will continue - Possible, though unlikely that hyperthryoidism is causing this. Will defer to PCP on adjusting thyroid meds. (6) Gastroesophageal reflux disease: - Continue PPI (7) Anxiety: - Continue BuSpar Plan VTE ppx: SCDs, ambulating frequently in the hallway Total Time Total Time Spent Total Time Spent (In Minutes): 45 Discharge Plan Discharge Items Patient Disposition: Home - Self-Care Reason For Visit: NUMBNESS Discharge Diagnosis: Numbness in upper and lower extremities, not clear cause of symptoms Condition on Discharge: Good Activity: Resume your previous activity Non-emergency contact: Primary Care Provider Call non-emergency contact if: you have any medication questions Follow-up/Referrals: Franco Moore MD [Physician] - (upper and lower extremity weakness, nonspecific. MRI of cervical/brain/lumbar unremarkable) Shamika Kramer MD [Primary Care Provider] - 03/08/22 10:20 am Diet: Regular Addtl Attending Provider Instructions: Ms. Purcell, You were hospitalized due to back pain, stomach pain, and lower extremity as well as upper extremity numbness. You had an MRI of your brain, neck, and lower back which did not reveal any significant abnormalities to explain your symptoms. We did significant testing to look for a cause. The tests are all "send out" labs meaning they will take a week or more to come back, so please follow up with Dr. Kramer in a week to discuss those results. We thought it might be due to something called acute intermittent porphyria; however, we cannot be sure without the labs that we sent out coming back. This is why we did the glucose infusion as this helps with synthesis of proteins in your body and would help reduce symptoms. It is not clear to me if it worked, as you are feeling better, but only really received 6 hours of the IV fluids. Please follow up with your PCP for this. It is also possible this is a late consequence of Covid which can cause peripheral neuropathy (damage to the nerves). As we discussed, please consider seeing a neurologist who specializes in this (you mentioned a study at [facility] which could be beneficial). You could consider follow up with neurology for further work up of these symptoms. In the interim, we are prescribing a medication called gabapentin which may help. Take this before bedtime. Give it a week or so to work. If it does not help at all, you can discuss wtih Dr. Kramer to stop it. If it helps a little, we are starting a very low dose, so you could try to increase the dose under her direction. You did have a very small disc bulge noted at the level of L5. If your back pain persists, could either consider referral to pain management versus Dr. Rogers (orthopedic spine surgeon). Your primary care provider can assist you with this. You could consider purchasing over the counter Lidocaine patches and using to affected area as directed. It is noted on your medication list that you are taking two medications that are both non-steroidal anti-inflammatories (Etodolac and Naproxen). Please discontinue these medications if you are still taking both. Taking these medications can be hard on your stomach and cause ulcers, along with worsening symptoms in the long run. It is recommended that you follow up with your primary care provider within 1 week of discharge from the hospital. If you have any questions following your discharge, call the non-emergency number listed on your paperwork. In the event of a medical emergency, call 911. Pending Studies at Discharge: No Stand-Alone Forms: My [employer], Smoking Cessation Medications and DC Order Prescriptions: New gabapentin 100 mg capsule 100 mg PO HS Qty: 30 0RF Continued liothyronine 5 mcg tablet 10 mcg PO QAM Qty: 180 1RF chlorthalidone 25 mg tablet 25 mg PO QAM Qty: 90 3RF pantoprazole 40 mg tablet,delayed release (DR/EC) 40 mg PO QAM Qty: 90 1RF sumatriptan succinate 100 mg tablet 100 mg PO Q2H PRN (Reason: migraine headache) Qty: 9 5RF dicyclomine 20 mg tablet 20 mg PO Q6 PRN (Reason: abdominal pain) Qty: 30 1RF Label Comments: NEW RX buspirone 5 mg tablet 5 mg PO BID PRN (Reason: anxiety) Qty: 60 5RF cholecalciferol (vitamin D3) [Vitamin D3] 5,000 unit Tablet 5,000 unit PO QAM fluticasone propionate 50 mcg/actuation spray,suspension 1 spray INTNAS DAILY PRN (Reason: Nasal Congestion) Rx Instructions: administer into each nostril fexofenadine 180 mg Tablet 180 mg PO QAM PRN (Reason: Allergy Symptoms) albuterol sulfate [Ventolin HFA] 90 mcg/actuation HFA aerosol inhaler 1 puff inhalation Q4H PRN (Reason: shortness of breath or wheezing) levothyroxine [Synthroid] 150 mcg tablet 150 mcg PO DAILY cyanocobalamin (vitamin B-12) [Vitamin B-12] 100 mcg Tablet 0 mcg PO DAILY Discontinued naproxen 500 mg tablet 500 mg PO Q12H PRN (Reason: Migraine Headache) Qty: 60 5RF Rx Instructions: TAKE WITH IMITREX WHEN NEEDED FOR MIGRAINES etodolac 200 mg capsule 200 mg PO Q12H PRN (Reason: pain) Qty: 14 0RF Discharge Orders: Discharge Order (Routine); Ordered 02/28/22 Ordered By: Johnny Hill/Other Patient Handouts: Healthy Meals for Diabetes, Understanding Carbohydrates, Diabetes Carbs Fats Protein, ED Diet: Diabetes Admission Data Admit Date/Time: 02/26/22 09:23 Attending Provider: Johnny Elaine Admit Provider: Johnny Elaine Primary Care Provider: Shamika Kramer Other Providers: Johnny Elaine Other Interventions: Discharge Summary Assessment (RN) Last Done: 02/28/22 12:59 Coding Level of Care Code 68775 OBS Care - Discharge Diagnoses Numbness and tingling of both upper extremities R20.0; R20.2 Back pain M54.9 Chest pain R07.9 Hypokalemia E87.6 Hypothyroidism E03.9 Gastroesophageal reflux disease K21.9 Anxiety F41.9
[2022-03-01 14:36] LABS: Albumin 4.2 g/dL (3.8-4.8); Alpha 1 Globulin 0.2 g/dL (0.2-0.3); Alpha 2 Globulin 0.7 g/dL (0.5-0.9); Anti Nuclear Antibody Screen POSITIVE (NEGATIVE); Anti-SS-A <1.0 NEG AI (<1.0 NEG); Anti-SS-B <1.0 NEG AI (<1.0 NEG); Beta-1-Globulin 0.5 g/dL (0.4-0.6); Beta-2-Globulin 0.3 g/dL (0.2-0.5); Gamma Globulin 0.7 g/dL (0.8-1.7); Monoclonal Protein Band 1 DNR g/dL (NONE DETECTED); Monoclonal Protein Band 2 DNR g/dL (NONE DETECTED); Monoclonal Protein Band 3 DNR g/dL (NONE DETECTED); Rheumatoid Factor <14 IU/mL (<14); Total Protein 6.7 g/dL (6.1-8.1)
[2022-03-01 21:56] LABS: Babesia microti DNA Not Detected (Not Detected)
[2022-03-02 08:00] LABS: ANA Pattern Nuclear, Speckled; ANA Titer 1:40 titer
[2022-03-04 15:53] LABS: Ehrlichia chaff DNA Bld Negative (Negative)
[2022-03-05 09:47] LABS: Coproporphyrins I Random Ur 24.3 (6.5-33.2); Coproporphyrins III Random Ur 76.6 (4.8-88.6); Creatinine Ur 92 mg/dL (20-275); Hexacarboxlyporphrin Urine 0.6 (< OR = 6.3); Pentacarboxylporph Ur 1.1 (< OR = 4.1); Porphobilinogen Ran Ur 0.068 mg/g creat (<0.22); Porphyrins Total Urine 124.4 (27.0-153.6); Protein, Urine Random 4 mg/dL (5-24); Ur Protein/Creat Ratio mg/g 43 mg/g creat (21-161); Urine Abnormal Protein Band 1 DNR mg/dL (NONE DETECTED); Urine Abnormal Protein Band 2 DNR mg/dL (NONE DETECTED); Urine Abnormal Protein Band 3 DNR mg/dL (NONE DETECTED); Urine Protein/Creatinine Ratio 0.043 (0.021-0.161)
== END 2022-02-28 13:44 | disposition home or self-care (01) ==
LOC: ED 07:12 → EDINP 07:12 → 2N 11:31